=== PATIENT | male | born 1945 | race Caucasian/White ===

== ENCOUNTER 2017-05-09 22:03 | Inpatient (IN) | payer MEDICARE ==
--- NOTE | 2017-05-09 22:14 | ED Physician Chart ---
Chief Complaint/HPI - Patient Information Date Seen:: 05/09/17 Time Seen:: 22:09 Chief Complaint:: Increasing cough with fever for about 5 days. History of Present Illness:: Brought in by his friend Ms. Bella Pratt for the above reason. Pt reports worsening cough with yellow green sputum production over past 5 days with fever. Pt also experiences dyspnea intermittently. Denies chest pain or discomfort. H & P are limited because pt is not fully cooperative. Allergies:: Allergies Allergy/AdvReac Type Severity Reaction Status Date / Time No Known Allergies Allergy Unverified 04/30/16 10:37 Vitals:: see Nurse Note. Historian:: Patient Family MD/PCP:: unknown LMP:: N/A Review:: Nurse's Note Reviewed Review of Systems - Review of Systems General/Constitutional: Other (Pt does not cooperate for ROS.) Past Medical History - Past Medical History Past Medical History: Asthma/COPD (?) Family History: Other (Pt does not cooperate to provide info on FHx.) Social History: Smoker (1 ppd. Pt has been informed about health risks associated with chronic tobacco use. Pt has been advised to quit and has been encouraged to enroll in a smoking cessation program. Pt acknowledges understanding.), Single, Homeless Employment:: unemployed. Surgical History: None Psychiatricy History: None Medication: None Family Medical History - Family Member Mother History Unknown: Yes Son History Unknown: Yes Ethnicity: Non- Living Status: Still Living Hx Family Cancer: Yes Hx Family Coronary Artery Disease: Yes Hx Family Congestive Heart Failure: No Hx Family Hypertension: No Hx Family Stroke: Yes Hx Family Diabetes: No Hx Family Seizures: No Hx Family Dementia: No Hx Family AIDS: No Hx Family HIV: No Hx Family COPD: No Hx Family Hepatitis: No Hx Family Psychiatric Problems: No Hx Family Tuberculosis: No Father Ethnicity: Non- Living Status: Hx Family Coronary Artery Disease: Yes Physical Exam - Physical Examination General/Constitutional: Awake, Alert, Ambulatory (with assistance.) Other Gen/Cons comments:: WD cachectic elderly male with mild dyspnea. Pt speaks clearly but not fully cooperative. Pt ambulates with assistance. Head: Atraumatic Eyes: Lids, conjuctiva normal, PERRL, EOMI Skin: No lymphadenopathy Other Skin comments:: Skin has good color with mild decrease in turgor. ENMT: External ears, nose nl, TM canals nl, Nasal exam nl, Oropharynx nl Other ENMT comments:: Poor dentition with multiple missing teeth. Mucous membrane is dry. Neck: Nontender, Full ROM w/o pain, No JVD, No nuchal rigidity, No mass, No stridor Respiratory: Nl effort/Exclusion Other Respiratory comments:: Mild diffuse scattered rhonchi. Trace rales in R lower lung field. Cardio Vascular: RRR, No murmur, gallop, rubs GI: No tenderness/rebounding/guarding, No organomegaly, No hernia, Normal BS's, Nondistended, No mass/bruits, No McBurney tenderness : No CVA tenderness Extremities: No edema Neuro/Psych: Alert/oriented (oriented x 3), No focal deficits Labs/Radiology/EKG Results - Lab Results Results: Laboratory Tests 05/09/17 05/09/17 05/09/17 22:27 22:27 22:27 WBC 13.9 H D RBC 4.86 Hgb 13.6 Hct 40.7 MCV 83.8 MCH 28.0 MCHC Differential 33.4 RDW 15.3 Plt Count 190 MPV 8.9 Neutrophils % 81.6 H Lymphocytes % 8.7 L Monocytes % 5.8 Eosinophils % 1.1 Basophils % 2.8 H PT 10.4 INR 1.00 PTT (Actin FS) 24.5 L Sodium 133 L Potassium 3.9 Chloride 104 Carbon Dioxide 24.7 Anion Gap 8.2 BUN 20 Creatinine 0.9 Est GFR ( Amer) TNP Est GFR (Non-Af Amer) TNP BUN/Creatinine Ratio 22.2 Glucose 173 H Whole Bld Lactic Acid Calcium 9.5 Total Bilirubin 0.5 AST 26 ALT 19 Alkaline Phosphatase 147 H Creatine Kinase 147 Troponin I B-Natriuretic Peptide Total Protein 7.6 Albumin 3.5 L Globulin 4.1 Albumin/Globulin Ratio 0.9 L 05/09/17 05/09/17 22:27 22:27 WBC RBC Hgb Hct MCV MCH MCHC Differential RDW Plt Count MPV Neutrophils % Lymphocytes % Monocytes % Eosinophils % Basophils % PT INR PTT (Actin FS) Sodium Potassium Chloride Carbon Dioxide Anion Gap BUN Creatinine Est GFR ( Amer) Est GFR (Non-Af Amer) BUN/Creatinine Ratio Glucose Whole Bld Lactic Acid 1.14 Calcium Total Bilirubin AST ALT Alkaline Phosphatase Creatine Kinase Troponin I 0.04 B-Natriuretic Peptide 73.2 Total Protein Albumin Globulin Albumin/Globulin Ratio Urinalysis, sputum study are pending. - Radiology Results Results: PCXR: Based on my interpretation, increased markings at R lower lung field and L basilar region c/w pneumonia. Official report is pending. - EKG Interpretations EKG Time:: 22:35 Rate & Rhythm: NSR with VR 90 Comments:: RBBB. No acute ischemic changes. ED Septic Shock - . Is Septic Shock (SBP<90, OR Lactate>4 mmol\L) present?: No Reassessment (Disposition) - Reassessment Reassessment:: 2315 Pt has been repeatedly evaluated. Pt feels much better and now breathes comfortably with O2 saturation 97%. No wheeze. CXR is pending. 2340 CXR just became available. EKG, CXR, and lab findings have been reviewed with pt. Management plan has been discussed. Dr. Mancini is to be contacted. 2348 Case was discussed with Dr. Power with pertinent H & P, EKG, CXR, and available lab findings reviewed. He concurred with present management. Pt is to be admitted to [facility] under his care. He will follow on pending lab results. Reassessment Condition:: Improved - Diagnosis Diagnosis:: Febrile illness related to RLL and L basilar pneumonia. Stable. Dehydration, stable and improved. Mild hyperglycemia. Stable. - Patient Disposition Admitted to:: Med/Surg Admitting Medical Physician:: Arsalan Power Time:: 23:50 Condition at Disposition:: Stable, Improved
[2017-05-09] MEDS ORDERED: Albuterol/Ipratropium Neb 3 ML AERS HHN ONE ×2 (22:21→22:31)
[2017-05-09] MEDS ORDERED: Sodium Chloride 0.9% 500 ML IV ONE (22:24)
[2017-05-09] MEDS ORDERED: cefTRIAXone 1 GM in Sodium Chloride 0.9% 50 ML IV ONE (22:29)
[2017-05-09 22:39] LABS: % EOSINOPHILS 1.1 % (0.0-5.0)
[2017-05-09 22:43] LABS: % BASOPHILS 2.8 % (0.0-2.0); % LYMPHOCYTES 8.7 % (20.0-50.0); % MONOCYTES 5.8 % (2.0-10.0); % NEUTROPHILS 81.6 % (40.0-80.0); HEMATOCRIT 40.7 % (39.0-49.0); HEMOGLOBIN 13.6 gm/dL (12.6-17.4); MEAN CELL VOLUME 83.8 fl (80-99); MEAN CORPUSCULAR HGB CONC 33.4 pg (28.0-36.0); MEAN PLATELET VOLUME 8.9 fl; NEUTROPHILE ABSOLUTE 11.3 Th/cmm (1.8-8.0); PLATELET COUNT 190 Th/cmm (150-400); RED BLOOD COUNT 4.86 Mil/cmm (3.80-5.80); RED CELL DISTRIBUTION WIDTH 15.3 % (11.5-20.0)
[2017-05-09 22:45] LABS: WHITE BLOOD COUNT 13.9 Th/cmm (4.8-10.8)
[2017-05-09 22:52] LABS: ALB/GLOB RATIO 0.9 (1.0-1.8); ALKALINE PHOSPHATASE 147 U/L (34-104); ANION GAP 8.2 (7.0-16.0); BILIRUBIN,TOTAL 0.5 mg/dL (0.3-1.0); BUN - UREA NITROGEN 20 mg/dL (7-25); BUN/CREATININE RATIO 22.2; CALCIUM SERUM 9.5 mg/dL (8.6-10.3); CARBON DIOXIDE 24.7 mEq/L (21.0-31.0); CHLORIDE 104 mEq/L (98-107); CREATININE - SERUM 0.9 mg/dL (0.7-1.3); GLUCOSE 173 mg/dL (70-105); POTASSIUM SERUM 3.9 mEq/L (3.5-5.1); SGOT 26 U/L (13-39); SGPT/ALT 19 U/L (7-52); SODIUM SERUM 133 mEq/L (136-145)
[2017-05-09 22:55] LABS: PROTHROMBIN TIME (TEST) 10.4 SECONDS (9.5-11.5); TROP I 0.04 ng/mL (0.01-0.05)
[2017-05-09 23:16] LABS: BNP 73.2 pg/mL (5.0-100.0)
[2017-05-09] MEDS ORDERED: Azithromycin 500 MG in Sodium Chloride 0.9% 250 ML IV ONE (23:40)
[2017-05-10] MEDS: Sodium Chloride 0.9% 1,000 ML IV ONE ×2 (00:15→05:12)
--- NOTE | 2017-05-10 09:56 | History & Physical ---
ADMIT DATE: 05/10/2017 CHIEF COMPLAINT: Increasing cough and fever. HISTORY OF PRESENT ILLNESS: This is the case of a 71-year-old white male who came to the Emergency Room secondary to cough and fever. The patient came to Emergency Room for evaluation and treatment. The patient was having referred that he had been having shortness of breath and chest pain, reason why he was admitted for treatment. PAST MEDICAL HISTORY: The patient has past medical history of asthma and COPD. SOCIAL HISTORY: The patient is . The patient does smoke one pack daily for many years. FAMILY HISTORY: Noncontributory. PAST SURGICAL HISTORY: None. MEDICATIONS: None. REVIEW OF SYSTEMS: LUNGS: The patient referred cough and fever. HEART: The patient referred occasional chest pain. ABDOMEN: Unremarkable. EXTREMITIES: Unremarkable. PHYSICAL EXAMINATION: GENERAL: Does reveal a fairly nourished and developed white male, awake, alert, and ambulatory. HEENT: Head is normocephalic and atraumatic. Eyes: Pupils reactive to light. Nose: No evidence of nasal obstruction. Ears: No evidence of any discharge. Mouth: Fairly some teeth missing. LUNGS: Some crackles in right lower lung. ABDOMEN: Soft, nontender, bowel sound is present. EXTREMITIES: No edema. NEUROLOGICAL: The patient is awake, alert, in no acute distress. Neurological examination was not completed secondary to the patient not being cooperative. IMPRESSION: 1. Pneumonia. 2. Dehydration. PLAN: 1. The patient will be admitted in the medical surgical floor. 2. Rocephin IV. 3. IV normal saline. 4. Regular diet. 5. CBC, CMP at a.m. JOB# [id number]
--- NOTE | 2017-05-10 10:41 | Diagnostic Imaging Report ---
CHEST X-RAY: AP view INDICATION: Cough COMPARISON: Chest x-ray 04/01/[address] chest on 11/28/2015 FINDINGS: Chronic lung changes are seen with bibasal infiltrates. Cardiomegaly is noted with atherosclerosis. There may be a small left effusion. Degenerative changes of the spine are noted. IMPRESSION: Chronic lung changes and bibasal infiltrates. Underlying pneumonia in the lung bases cannot be excluded. Cardiomegaly and atherosclerotic vascular disease.
[2017-05-10] MEDS ORDERED: cefTRIAXone 1 GM in Sodium Chloride 0.9% 50 ML IV SCH (21:00)
--- NOTE | 2017-05-11 03:17 | Admit Criteria Form ---
Admit Criteria Forms - Admit Criteria Diagnosis: PNEUMONIA, COMMUNITY ACQUIRED Clinical Indications for Admission to Inpatient Care (Place ' X' for any and all applicable criteria): Admission to inpatient status for two midnights or more is indicated for ANY ONE of the following (1)(2)(3): [ ]I. Hypoxia [ ]II. Hemodynamic instability [ ]III. Altered mental status that is severe or persistent [ ]IV. Dehydration that is severe or persistent. [ ]V. Bacteremia [ ]. Moderate-risk or high-risk category patients (Pneumonia Severity Index ( PSI) class IV or V, or CURB-65 score of 3 or greater). [X]VII. Intermediate-risk category patients (e.g., PSI class III or CURB-65 score 2) who do not improve with outpatient and observation care treatment [ ]VIII. Outpatient treatment failure as indicated by 1 or more of the following(9): [ ]a) Failure to respond to antibiotic (eg, resistant organism) [ ]b) Clinically significant adverse effects from medication (eg, vomiting) [ ]c) Complications of pneumonia (eg, empyema, bacteremia) [ ]d) Significant worsening of comorbid cond necessitating inpatient care (eg, chronic heart failure) [ ]IX. Appropriate diagnostic testing and treatment unavailable in outpatient or recovery facility (eg, testing or infection control measures unavailable) [ ]X. Respiratory finding (eg. tachypnea) that do not respond to outpatient observation care treatment [ ]XI. Complicated pleural effusions (eg, emphysema, exudative, loculated) [ ]XII. Immunocompromised patients (e.g., AIDS, chronic steroid use) at moderate or high risk based on clinical evaluation. Extended stay beyond goal length of stay may be needed for (20) [ ]a) Unclear diagnosis [ ]b) Pleural disease [ ]c) Severe pneumonia or treatment failure [ ]d) Respiratory failure [ ]e) New onset hyponatremia (serum Na concentration less than 135 mEq/L(mmol/ L) [ ]f) Clinically significant comorbid illness (eg, heart failure, atrial fibrillation with rapid heart rate, alcohol withdrawal, renal insufficiency)(34)(35) [ ]g) Comorbid acute exacerbation of COPD(36) [ ]h) Concomitant diagnosis of malignancy [ ]i) Concomitant altered mental status [ ]j) Culture-identified Gram-negative or antibiotic-resistant organism (eg, Pseudomonas, methicillin-resistant Staphylococcus aureus MRSA)(30) [ ]k) Healthcare-associated pneumonia (36) The original [facility] [employer] content created by [facility] has been revised. The portions of the content which have been revised are identified through the use of italic text or in bold, and [facility] has neither reviewed nor approved the modified material. All other unmodified content is copyright [facility]. Please see references footnoted in the original [facility] edition 2017
[2017-05-11 05:47] LABS: % BASOPHILS 0.9 % (0.0-2.0); % EOSINOPHILS 7.1 % (0.0-5.0); % LYMPHOCYTES 12.6 % (20.0-50.0); % MONOCYTES 7.9 % (2.0-10.0); % NEUTROPHILS 71.5 % (40.0-80.0); HEMATOCRIT 41.7 % (39.0-49.0); HEMOGLOBIN 13.4 gm/dL (12.6-17.4); MEAN CELL VOLUME 85.7 fl (80-99); MEAN CORPUSCULAR HEMOGLOBIN 27.4 pg (27.0-31.0); MEAN PLATELET VOLUME 8.8 fl; NEUTROPHILE ABSOLUTE 7.6 Th/cmm (1.8-8.0); PLATELET COUNT 159 Th/cmm (150-400); RED BLOOD COUNT 4.87 Mil/cmm (3.80-5.80); RED CELL DISTRIBUTION WIDTH 15.2 % (11.5-20.0)
[2017-05-11 05:52] LABS: WHITE BLOOD COUNT 10.6 Th/cmm (4.8-10.8)
[2017-05-11 06:11] LABS: ALB/GLOB RATIO 0.8 (1.0-1.8); ALKALINE PHOSPHATASE 123 U/L (34-104); ANION GAP 8.1 (7.0-16.0); BILIRUBIN,TOTAL 0.6 mg/dL (0.3-1.0); BUN - UREA NITROGEN 15 mg/dL (7-25); BUN/CREATININE RATIO 21.4; CALCIUM SERUM 9.1 mg/dL (8.6-10.3); CARBON DIOXIDE 25.6 mEq/L (21.0-31.0); CHLORIDE 103 mEq/L (98-107); CREATININE - SERUM 0.7 mg/dL (0.7-1.3); GLUCOSE 123 mg/dL (70-105); POTASSIUM SERUM 3.7 mEq/L (3.5-5.1); SGOT 20 U/L (13-39); SGPT/ALT 15 U/L (7-52); SODIUM SERUM 133 mEq/L (136-145)
--- NOTE | 2017-05-11 08:34 | General Progress Note ---
Subjective - Review of Systems Service Date: 05/11/17 Subjective: I fell better Objective - Results Result Diagrams: 05/11/17 05:25 05/11/17 05:25 Recent Labs: Laboratory Last Values WBC 10.6 Th/cmm (4.8-10.8) D 05/11/17 05:25 RBC 4.87 Mil/cmm (3.80-5.80) 05/11/17 05:25 Hgb 13.4 gm/dL (12.6-17.4) 05/11/17 05:25 Hct 41.7 % (39.0-49.0) 05/11/17 05:25 MCV 85.7 fl (80-99) 05/11/17 05:25 MCH 27.4 pg (27.0-31.0) 05/11/17 05:25 MCHC Differential 32.0 pg (28.0-36.0) 05/11/17 05:25 RDW 15.2 % (11.5-20.0) 05/11/17 05:25 Plt Count 159 Th/cmm (150-400) 05/11/17 05:25 MPV 8.8 fl 05/11/17 05:25 Neutrophils % 71.5 % (40.0-80.0) 05/11/17 05:25 Lymphocytes % 12.6 % (20.0-50.0) L 05/11/17 05:25 Monocytes % 7.9 % (2.0-10.0) 05/11/17 05:25 Eosinophils % 7.1 % (0.0-5.0) H 05/11/17 05:25 Basophils % 0.9 % (0.0-2.0) 05/11/17 05:25 PT 10.4 SECONDS (9.5-11.5) 05/09/17 22:27 INR 1.00 (0.5-1.4) 05/09/17 22:27 PTT (Actin FS) 24.5 SECONDS (26.0-38.0) L 05/09/17 22:27 Sodium 133 mEq/L (136-145) L 05/11/17 05:25 Potassium 3.7 mEq/L (3.5-5.1) 05/11/17 05:25 Chloride 103 mEq/L (98-107) 05/11/17 05:25 Carbon Dioxide 25.6 mEq/L (21.0-31.0) 05/11/17 05:25 Anion Gap 8.1 (7.0-16.0) 05/11/17 05:25 BUN 15 mg/dL (7-25) 05/11/17 05:25 Creatinine 0.7 mg/dL (0.7-1.3) 05/11/17 05:25 Est GFR ( Amer) TNP 05/11/17 05:25 Est GFR (Non-Af Amer) TNP 05/11/17 05:25 BUN/Creatinine Ratio 21.4 05/11/17 05:25 Glucose 123 mg/dL (70-105) H 05/11/17 05:25 Whole Bld Lactic Acid 1.14 mmol/L (0.60-1.99) 05/09/17 22:27 Calcium 9.1 mg/dL (8.6-10.3) 05/11/17 05:25 Total Bilirubin 0.6 mg/dL (0.3-1.0) 05/11/17 05:25 AST 20 U/L (13-39) 05/11/17 05:25 ALT 15 U/L (7-52) 05/11/17 05:25 Alkaline Phosphatase 123 U/L (34-104) H 05/11/17 05:25 Creatine Kinase 147 U/L (30-223) 05/09/17 22:27 Troponin I 0.04 ng/mL (0.01-0.05) 05/09/17 22:27 B-Natriuretic Peptide 73.2 pg/mL (5.0-100.0) 05/09/17 22:27 Total Protein 6.9 gm/dL (6.0-8.3) 05/11/17 05:25 Albumin 3.0 gm/dL (4.2-5.5) L 05/11/17 05:25 Globulin 3.9 gm/dL 05/11/17 05:25 Albumin/Globulin Ratio 0.8 (1.0-1.8) L 05/11/17 05:25 - Physical Exam Vitals and I&O: Vital Signs Temp 99.0 F 05/11/17 04:00 Pulse 70 05/11/17 04:00 Resp 18 05/11/17 04:00 BP 140/76 05/11/17 04:00 Pulse Ox 96 05/11/17 04:00 Intake & Output 05/10/17 05/11/17 05/11/17 18:59 06:59 18:59 Intake Total 1200 400 Balance 1200 400 Weight (lbs) 73.391 kg 72.575 kg Intake: Oral 1200 400 Other: # Voids 2 2 # Bowel Movements 0 Active Medications: Current Medications Acetaminophen (Tylenol) 650 mg PO Q4H PRN PRN Reason: Pain/Fever Stop: 07/08/17 23:52 Ceftriaxone Sodium 1 gm/ (Sodium Chloride) 50 mls @ 100 mls/hr IV Q24H SWATHI Stop: 07/09/17 20:59 Last Admin: 05/10/17 21:18 Dose: 100 mls/hr General: Other (Sleeping but arousable) HEENT: Atraumatic Neck: Supple Cardiovascular: Regular rate Lungs: Other (Rude respitation) Abdomen: Bowel sounds, Soft Extremities: Other (No edema) Neurological: Normal gait Skin: Other (Warm and dry) Psych/Mental Status: Mental status NL Assessment/Plan - Problem List Patient Problems: All Active Problems Chronic obstructive pulmonary disease with acute exacerbation (Acute) J44.1 Pneumonia (Acute) J18.9 - Assessment Assessment: Patient is sleeping but arousable, in no acute distress. Dx: Pneumonia - Plan Plan: WBC improving, CXR is requested. On rocephin. Will continue to monitor. Nutritional Asmnt/Malnutr-PDOC - Dietary Evaluation Malnutrition Findings (Please click <Entered> for more info): Nutritional Asmnt/Malnutrition Start: 05/10/17 18: 41 Text: Status: Complete Freq: Document 05/10/17 18:41 GSUN (Rec: 05/10/17 18:54 [email or web address] [email or web address]) Nutritional Asmnt/Malnutrition Patient General Information Nutritional Screening High Risk Screening Diagnosis ER: pneumonia stable, dehydration, mild hyperglycemia Pertinent Medical Hx/Surgical Hx ER: ?asthma/COPD, smoker Subjective Information 71 year old male. Visited pt during dinner time. Pt was pleasant, provided one word responses. Pt was sitting on edge of bed eating dinner, 90% consumed at the time, no difficulties noted. Pt is edentulous, denied difficulties chewing/ swallowing. Pt report UBW 170lb, unsure of recent weight changes. Limited physical assessment, no severe wasting noted. Current Diet Order/ Nutrition Support Regular Pertinent Medications Reviewed. Pertinent Labs 05/09: glucose 173H Nutritional Hx/Data Height 1.78 m Height (Calculated Centimeters) 177.8 Current Weight (lbs) 73.391 kg Weight (Calculated Kilograms) 73.4 Weight (Calculated Grams) 54918.2 Usual body Weight (lbs) 170 [place] Body Weight 166 Weight Status Approriate GI Symptoms Cultural/Ethnic/Oriental Orthodox Belief Pt denied allergies and preferences. 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 Current %PO Good (75-100%) Estimated Nutritional Goals BEE in Kcals: Using Current wt Calories/Kcals/Kg CBW 161.8lb/73.5kg Kcals Calculated 2205-2573kcal (30-35kcal/kg) Protein: Using Current wt Protein Calculated 55966i (1-1.4g/kg) Fluid: ml Per MD (dx. dehydration) Nutritional Problem 1. Problem Problem Increased kcal and prot needs related to Etiology hypermetabolic state aeb Signs/Symptoms: pneumonia Intervention/Recommendation Comments 1. Continue with current diet order. 2. Monitor glucose levels, recommend [id number] if hyperglycemia persists. Expected Outcomes/Goals Expected Outcomes/Goals 1. PO intake to meet at least 75% of estimated nutritional needs.
--- NOTE | 2017-05-11 11:45 | Diagnostic Imaging Report ---
CHEST X-RAY: AP view INDICATION: Pneumonia COMPARISON: 05/09/2017 FINDINGS: Chronic lung changes are seen. Mild improvement in bibasal infiltrates are noted particularly of the right lung. There may be a trace left effusion. Heart size normal. IMPRESSION: Mild improvement in bibasal infiltrates, particularly of the right lung.
[2017-05-12 05:42] LABS: % BASOPHILS 0.2 % (0.0-2.0); % EOSINOPHILS 9.1 % (0.0-5.0); % LYMPHOCYTES 13.6 % (20.0-50.0); % MONOCYTES 8.9 % (2.0-10.0); % NEUTROPHILS 68.2 % (40.0-80.0); HEMATOCRIT 42.3 % (39.0-49.0); HEMOGLOBIN 13.9 gm/dL (12.6-17.4); MEAN CELL VOLUME 85.1 fl (80-99); MEAN CORPUSCULAR HGB CONC 32.8 pg (28.0-36.0); NEUTROPHILE ABSOLUTE 6.3 Th/cmm (1.8-8.0); PLATELET COUNT 168 Th/cmm (150-400); RED BLOOD COUNT 4.97 Mil/cmm (3.80-5.80); RED CELL DISTRIBUTION WIDTH 14.9 % (11.5-20.0); WHITE BLOOD COUNT 9.2 Th/cmm (4.8-10.8)
[2017-05-12 05:51] LABS: ALB/GLOB RATIO 0.8 (1.0-1.8); ALKALINE PHOSPHATASE 126 U/L (34-104); ANION GAP 7.6 (7.0-16.0); BILIRUBIN,TOTAL 0.5 mg/dL (0.3-1.0); BUN - UREA NITROGEN 17 mg/dL (7-25); BUN/CREATININE RATIO 24.3; CALCIUM SERUM 9.4 mg/dL (8.6-10.3); CARBON DIOXIDE 27.3 mEq/L (21.0-31.0); CHLORIDE 104 mEq/L (98-107); CREATININE - SERUM 0.7 mg/dL (0.7-1.3); GLUCOSE 134 mg/dL (70-105); POTASSIUM SERUM 3.9 mEq/L (3.5-5.1); SGOT 21 U/L (13-39); SGPT/ALT 17 U/L (7-52); SODIUM SERUM 135 mEq/L (136-145)
--- NOTE | 2017-05-12 08:48 | General Progress Note ---
Subjective - Review of Systems Service Date: 05/12/17 Subjective: I fell better Objective - Results Result Diagrams: 05/12/17 05:10 05/12/17 05:10 Recent Labs: Laboratory Last Values WBC 9.2 Th/cmm (4.8-10.8) 05/12/17 05:10 RBC 4.97 Mil/cmm (3.80-5.80) 05/12/17 05:10 Hgb 13.9 gm/dL (12.6-17.4) 05/12/17 05:10 Hct 42.3 % (39.0-49.0) 05/12/17 05:10 MCV 85.1 fl (80-99) 05/12/17 05:10 MCH 28.0 pg (27.0-31.0) 05/12/17 05:10 MCHC Differential 32.8 pg (28.0-36.0) 05/12/17 05:10 RDW 14.9 % (11.5-20.0) 05/12/17 05:10 Plt Count 168 Th/cmm (150-400) 05/12/17 05:10 MPV 9.0 fl 05/12/17 05:10 Neutrophils % 68.2 % (40.0-80.0) 05/12/17 05:10 Lymphocytes % 13.6 % (20.0-50.0) L 05/12/17 05:10 Monocytes % 8.9 % (2.0-10.0) 05/12/17 05:10 Eosinophils % 9.1 % (0.0-5.0) H 05/12/17 05:10 Basophils % 0.2 % (0.0-2.0) 05/12/17 05:10 PT 10.4 SECONDS (9.5-11.5) 05/09/17 22:27 INR 1.00 (0.5-1.4) 05/09/17 22:27 PTT (Actin FS) 24.5 SECONDS (26.0-38.0) L 05/09/17 22:27 Sodium 135 mEq/L (136-145) L 05/12/17 05:10 Potassium 3.9 mEq/L (3.5-5.1) 05/12/17 05:10 Chloride 104 mEq/L (98-107) 05/12/17 05:10 Carbon Dioxide 27.3 mEq/L (21.0-31.0) 05/12/17 05:10 Anion Gap 7.6 (7.0-16.0) 05/12/17 05:10 BUN 17 mg/dL (7-25) 05/12/17 05:10 Creatinine 0.7 mg/dL (0.7-1.3) 05/12/17 05:10 Est GFR ( Amer) TNP 05/12/17 05:10 Est GFR (Non-Af Amer) TNP 05/12/17 05:10 BUN/Creatinine Ratio 24.3 05/12/17 05:10 Glucose 134 mg/dL (70-105) H 05/12/17 05:10 Whole Bld Lactic Acid 1.14 mmol/L (0.60-1.99) 05/09/17 22:27 Calcium 9.4 mg/dL (8.6-10.3) 05/12/17 05:10 Total Bilirubin 0.5 mg/dL (0.3-1.0) 05/12/17 05:10 AST 21 U/L (13-39) 05/12/17 05:10 ALT 17 U/L (7-52) 05/12/17 05:10 Alkaline Phosphatase 126 U/L (34-104) H 05/12/17 05:10 Creatine Kinase 147 U/L (30-223) 05/09/17 22:27 Troponin I 0.04 ng/mL (0.01-0.05) 05/09/17 22:27 B-Natriuretic Peptide 73.2 pg/mL (5.0-100.0) 05/09/17 22:27 Total Protein 7.1 gm/dL (6.0-8.3) 05/12/17 05:10 Albumin 3.1 gm/dL (4.2-5.5) L 05/12/17 05:10 Globulin 4.0 gm/dL 05/12/17 05:10 Albumin/Globulin Ratio 0.8 (1.0-1.8) L 05/12/17 05:10 - Physical Exam Vitals and I&O: Vital Signs Temp 97.8 F 05/12/17 07:53 Pulse 59 05/12/17 07:53 Resp 20 05/12/17 07:53 BP 152/77 05/12/17 07:53 Pulse Ox 94 05/12/17 07:53 Intake & Output 05/11/17 05/12/17 05/12/17 18:59 06:59 18:59 Intake Total 500 Balance 500 Weight (lbs) 71.668 kg 72.121 kg Intake: Oral 500 Other: # Voids 2 # Bowel Movements 1 Active Medications: Current Medications Acetaminophen (Tylenol) 650 mg PO Q4H PRN PRN Reason: Pain/Fever Stop: 07/08/17 23:52 Ceftriaxone Sodium 1 gm/ (Sodium Chloride) 50 mls @ 100 mls/hr IV Q24H SWATHI Stop: 07/09/17 20:59 Last Admin: 05/10/17 21:18 Dose: 100 mls/hr General: Alert, Oriented x3, Cooperative, No acute distress HEENT: Atraumatic Neck: Supple Cardiovascular: Regular rate Lungs: Clear to auscultation Abdomen: Bowel sounds, Soft Extremities: Other (No edema) Neurological: Normal gait Skin: Other (Warm and dry) Psych/Mental Status: Mental status NL Assessment/Plan - Problem List Patient Problems: All Active Problems Chronic obstructive pulmonary disease with acute exacerbation (Acute) J44.1 Pneumonia (Acute) J18.9 - Assessment Assessment: Patient is sleeping but arousable, in no acute distress. Dx: Pneumonia. - Plan Plan: WBC improving, CXR shows improvement. Patient is discharge. Nutritional Asmnt/Malnutr-PDOC - Dietary Evaluation Malnutrition Findings (Please click <Entered> for more info): Nutritional Asmnt/Malnutrition Start: 05/10/17 18: 41 Text: Status: Complete Freq: Document 05/10/17 18:41 GSUN (Rec: 05/10/17 18:54 [email or web address] [email or web address]) Nutritional Asmnt/Malnutrition Patient General Information Nutritional Screening High Risk Screening Diagnosis ER: pneumonia stable, dehydration, mild hyperglycemia Pertinent Medical Hx/Surgical Hx ER: ?asthma/COPD, smoker Subjective Information 71 year old male. Visited pt during dinner time. Pt was pleasant, provided one word responses. Pt was sitting on edge of bed eating dinner, 90% consumed at the time, no difficulties noted. Pt is edentulous, denied difficulties chewing/ swallowing. Pt report UBW 170lb, unsure of recent weight changes. Limited physical assessment, no severe wasting noted. Current Diet Order/ Nutrition Support Regular Pertinent Medications Reviewed. Pertinent Labs 05/09: glucose 173H Nutritional Hx/Data Height 1.78 m Height (Calculated Centimeters) 177.8 Current Weight (lbs) 73.391 kg Weight (Calculated Kilograms) 73.4 Weight (Calculated Grams) 56754.2 Usual body Weight (lbs) 170 [place] Body Weight 166 Weight Status Approriate GI Symptoms Cultural/Ethnic/Scientologist Belief Pt denied allergies and preferences. 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 Current %PO Good (75-100%) Estimated Nutritional Goals BEE in Kcals: Using Current wt Calories/Kcals/Kg CBW 161.8lb/73.5kg Kcals Calculated 2205-2573kcal (30-35kcal/kg) Protein: Using Current wt Protein Calculated 45245b (1-1.4g/kg) Fluid: ml Per MD (dx. dehydration) Nutritional Problem 1. Problem Problem Increased kcal and prot needs related to Etiology hypermetabolic state aeb Signs/Symptoms: pneumonia Intervention/Recommendation Comments 1. Continue with current diet order. 2. Monitor glucose levels, recommend [id number] if hyperglycemia persists. Expected Outcomes/Goals Expected Outcomes/Goals 1. PO intake to meet at least 75% of estimated nutritional needs.
== END 2017-05-12 12:50 | disposition home or self-care (01) | DRG 871 ==
LOC: ER 22:03 → MSI 05-10 04:06
PROVIDERS: ADMIT General Practice; ATTEND General Practice
DX: A41.9 Sepsis, unspecified organism (principal); J18.9 Pneumonia, unspecified organism; J44.0 Chronic obstructive pulmonary disease with (acute) lower respiratory infection; J44.1 Chronic obstructive pulmonary disease with (acute) exacerbation; E86.0 Dehydration; F17.210 Nicotine dependence, cigarettes, uncomplicated; R73.9 Hyperglycemia, unspecified; Z59.0 Homelessness; Z71.6 Tobacco abuse counseling; Z82.3 Family history of stroke; Z82.49 Family history of ischemic heart disease and other diseases of the circulatory system; Z80.9 Family history of malignant neoplasm, unspecified; Z68.22 Body mass index [BMI] 22.0-22.9, adult
CPT/HCPCS: 36415-UA; 71010-TC; 80053-TC; 82550-TC; 83605; 83880-TC; 84484-TC; 85025-TC; 85610-TC; 87070; 93005; J0456; J0696; J7030; J7040; Z7610

== ENCOUNTER 2017-07-31 18:06 | Inpatient (IN) | payer MEDICARE ==
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
[2017-07-31] MEDS ORDERED: Sodium Chloride 0.9% 1,000 ML IV ONE (18:46)
[2017-07-31 19:09] LABS: % BASOPHILS 0.7 % (0.0-2.0); % LYMPHOCYTES 15.7 % (20.0-50.0); % MONOCYTES 7.8 % (2.0-10.0); % NEUTROPHILS 67.8 % (40.0-80.0); HEMATOCRIT 41.3 % (41.0-60); HEMOGLOBIN 13.6 gm/dL (12-16); MEAN CELL VOLUME 87.7 fl (80-99); MEAN CORPUSCULAR HEMOGLOBIN 28.9 pg (27.0-31.0); MEAN PLATELET VOLUME 8.6 fl; NEUTROPHILE ABSOLUTE 4.8 Th/cmm (1.8-8.0); RED BLOOD COUNT 4.71 Mil/cmm (3.80-5.80); RED CELL DISTRIBUTION WIDTH 15.3 % (11.5-20.0)
[2017-07-31 19:14] LABS: PLATELET COUNT 132 Th/cmm (150-400); WHITE BLOOD COUNT 7.1 Th/cmm (4.8-10.8)
[2017-07-31 19:23] LABS: ALKALINE PHOSPHATASE 148 U/L (34-104); ANION GAP 7.9 (7.0-16.0); BILIRUBIN,TOTAL 0.5 mg/dL (0.3-1.0); BUN - UREA NITROGEN 21 mg/dL (7-25); CALCIUM SERUM 9.1 mg/dL (8.6-10.3); CARBON DIOXIDE 26.1 mEq/L (21.0-31.0); CHLORIDE 106 mEq/L (98-107); CREATININE - SERUM 0.7 mg/dL (0.7-1.3); GLUCOSE 136 mg/dL (70-105); SGOT 53 U/L (13-39); SGPT/ALT 44 U/L (7-52); SODIUM SERUM 136 mEq/L (136-145)
[2017-07-31 20:33] LABS: AMPHETAMINE URINE POSITIVE (NEGATIVE); BARBITURATES URINE NEGATIVE (NEGATIVE); METHADONE URINE NEGATIVE (NEGATIVE)
[2017-08-01] MEDS ORDERED: Haloperidol Lactate 5 mg/mL 1mL Vial IM PRN (01:57)
[2017-08-01] MEDS ORDERED: Haloperidol Lactate 5 mg/mL 1mL Vial ONE (01:59)
[2017-08-01] MEDS ORDERED: Haloperidol Lactate 5 mg/mL 1mL Vial IM ONE ×2 (02:06→08:10)
[2017-08-01] MEDS ORDERED: Sodium Chloride 0.9% 1,000 ML IV SCH (03:28)
[2017-08-01 03:57] VITALS: BP 147/93
[2017-08-01] MEDS ORDERED: Pneumococcal Vaccine 0.5 mL Vial IM ONE (04:52)
--- NOTE | 2017-08-01 09:06 | Diagnostic Imaging Report ---
CT scan cervical spine HISTORY: Pain, trauma Total DLP equals 700 CTDI equals 40.0 Axial sections are obtained to the cervical spine. Additional sagittal and coronal reformatted images are provided. There are relatively severe diffuse degenerative changes with hypertrophic spur formation noted about the endplates of all vertebrae. Narrowing of the C6-7 interspace. No acute abnormalities. No fractures. The prevertebral soft tissues appear normal. Atherosclerotic calcification seen in the carotid artery regions. IMPRESSION: 1. No acute abnormalities 2. Relatively severe diffuse degenerative changes 3. Atherosclerotic vascular changes
--- NOTE | 2017-08-01 09:07 | Diagnostic Imaging Report ---
CT scan of the brain without intravenous contrast HISTORY: Headache, trauma Total DLP equals 623 CTDI equals 34.1 Axial sections were obtained from the base of the skull to the vertex. There is enlargement of the ventricular system along with enlargement of cerebral sulci and subarachnoid cisterns reflecting atrophy. There are extensive bilateral Avelino hypodense white matter changes without mass effect. The findings may be associated with chronic small vessel ischemic disease. Several subcentimeter hypodense foci are scattered within the basal ganglia regions bilaterally. Changes may be associated with old lacunar infarcts. No acute intracerebral hemorrhage. Again, no mass effect or shift of midline structures. No extra-axial masses or abnormal fluid collections. Camilo thickening noted about the left maxillary sinus. Deviation of the nasal septum to the left. IMPRESSION: 1. No acute abnormalities 2. Cerebral atrophy 3. Supratentorial white matter changes that may reflect chronic small vessel ischemic disease 4. Small bilateral hypodensities that may be related to old lacunar infarcts 5. Mucosal thickening about the left maxillary sinus
[2017-08-01] MEDS: Haloperidol Lactate 5 mg/mL 1mL Vial IM PRN (13:12)
[2017-08-01] MEDS: Betamethasone/Clotrimazole Cream 15 gm Tube TP SCH (16:51)
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
[2017-08-02] MEDS: Haloperidol Lactate 5 mg/mL 1mL Vial IM PRN (00:03)
[2017-08-02] MEDS: Betamethasone/Clotrimazole Cream 15 gm Tube TP SCH ×2 (09:16→18:55)
[2017-08-02] MEDS ORDERED: Sodium Chloride 0.9% 1,000 ML IV SCH (12:30)
--- NOTE | 2017-08-02 13:07 | Diagnostic Imaging Report ---
Ultrasound urinary bladder History: Bladder distention Comparison: None Findings: Distended urinary bladder is noted. Small amount of debris is noted in the urinary bladder. The prostate gland appears prominent with mass effect upon the base of the urinary bladder. The prostate gland demonstrates irregular borders with cystic lesion measuring 1.1 cm. IMPRESSION: Prominent appearing prostate gland with mass effect upon the base of the urinary bladder. Note that an intrinsic urinary bladder mass in this area cannot be completely excluded. Clinical correlation and follow-up is recommended Small amount of debris noted in the urinary bladder.
[2017-08-02 13:18] LABS: HEMATOCRIT 48.5 % (41.0-60); HEMOGLOBIN 15.9 gm/dL (12-16); MEAN CELL VOLUME 86.2 fl (80-99); MEAN CORPUSCULAR HEMOGLOBIN 28.3 pg (27.0-31.0); MEAN CORPUSCULAR HGB CONC 32.9 pg (28.0-36.0); PLATELET COUNT 158 Th/cmm (150-400); RED BLOOD COUNT 5.63 Mil/cmm (3.80-5.80); RED CELL DISTRIBUTION WIDTH 15.5 % (11.5-20.0)
[2017-08-02 13:35] LABS: INR 1.09 (0.5-1.4); PROTHROMBIN TIME (TEST) 11.3 SECONDS (9.5-11.5)
[2017-08-02 13:51] LABS: ALKALINE PHOSPHATASE 174 U/L (34-104); ANION GAP 13.1 (7.0-16.0); BILIRUBIN,TOTAL 1.2 mg/dL (0.3-1.0); BUN - UREA NITROGEN 35 mg/dL (7-25); BUN/CREATININE RATIO 14.6; CALCIUM SERUM 9.6 mg/dL (8.6-10.3); CARBON DIOXIDE 21.3 mEq/L (21.0-31.0); CHLORIDE 108 mEq/L (98-107); CREATININE - SERUM 2.4 mg/dL (0.7-1.3); GLUCOSE 172 mg/dL (70-105); POTASSIUM SERUM 4.4 mEq/L (3.5-5.1); SGOT 48 U/L (13-39); SGPT/ALT 35 U/L (7-52); SODIUM SERUM 138 mEq/L (136-145)
[2017-08-02 14:00] LABS: WHITE BLOOD COUNT 15.6 Th/cmm (4.8-10.8)
[2017-08-02 14:25] LABS: EOSINOPHIL 2 % (0-5); NEUTROPHILS 84 % (40-80); PLATELET ESTIMATE ADEQUATE (NORMAL); TOTAL CELLS COUNTED 100
--- NOTE | 2017-08-02 15:49 | Progress Notes ---
DATE: 08/02/2017 SUBJECTIVE: Chart reviewed and the patient interviewed. Also discussed the patient's condition with the staff and reviewed records and labs. The patient is still confused and is still having episodes of agitation, but seems to be less than before. The patient also still needs lots of redirections. He is still on ____, but not on restraints. He also still seems to be today slightly sedated, but no major behavioral problems. ASSESSMENT: The patient still needs close monitoring. TREATMENT PLAN: We will continue monitoring his behavior and his condition closely and continue working on behavioral modification. JOB# [id number]
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
== END 2017-08-03 02:56 | disposition short-term general hospital (02) | DRG 92 ==
LOC: ER 18:06 → TELE 08-01 02:20 → MSI 08-01 10:21
PROVIDERS: ADMIT Family Medicine; ATTEND Family Medicine
DX: G92 Toxic encephalopathy (principal); N17.9 Acute kidney failure, unspecified; E88.09 Other disorders of plasma-protein metabolism, not elsewhere classified; G31.2 Degeneration of nervous system due to alcohol; N32.89 Other specified disorders of bladder; I10 Essential (primary) hypertension; S00.83XA Contusion of other part of head, initial encounter; D72.829 Elevated white blood cell count, unspecified; T43.625A Adverse effect of amphetamines, initial encounter; F20.9 Schizophrenia, unspecified; F15.10 Other stimulant abuse, uncomplicated; N40.0 Benign prostatic hyperplasia without lower urinary tract symptoms; F29 Unspecified psychosis not due to a substance or known physiological condition; F17.210 Nicotine dependence, cigarettes, uncomplicated; L53.9 Erythematous condition, unspecified; R33.9 Retention of urine, unspecified; F10.20 Alcohol dependence, uncomplicated; W01.0XXA Fall on same level from slipping, tripping and stumbling without subsequent striking against object, initial encounter; Y93.I9 Activity, other involving external motion; Y92.89 Other specified places as the place of occurrence of the external cause; Y99.8 Other external cause status; Z82.3 Family history of stroke; Z82.49 Family history of ischemic heart disease and other diseases of the circulatory system
CPT/HCPCS: 36415-UA; 70450-TC; 72125-TC; 76857-TC; 80053-TC; 80307; 80320-TC; 84484-TC; 85007-TC; 85025-TC; 85027-TC; 85610-TC; 93005; 96374; J1200; J1630; J2060; J7030; Z7610

== ENCOUNTER 2017-08-13 13:13 | Inpatient (IN) | payer MEDICARE ==
[2017-08-13 13:46] LABS: % BASOPHILS 0.8 % (0.0-2.0); % LYMPHOCYTES 18.5 % (20.0-50.0); % MONOCYTES 10.6 % (2.0-10.0); % NEUTROPHILS 58.1 % (40.0-80.0); MEAN CELL VOLUME 86.8 fl (80-99); MEAN CORPUSCULAR HEMOGLOBIN 29.3 pg (27.0-31.0); MEAN CORPUSCULAR HGB CONC 33.8 pg (28.0-36.0); NEUTROPHILE ABSOLUTE 3.4 Th/cmm (1.8-8.0); RED BLOOD COUNT 3.38 Mil/cmm (3.80-5.80); RED CELL DISTRIBUTION WIDTH 14.9 % (11.5-20.0)
[2017-08-13 13:50] LABS: WHITE BLOOD COUNT 5.8 Th/cmm (4.8-10.8)
[2017-08-13 13:51] LABS: HEMATOCRIT 29.3 % (41.0-60); HEMOGLOBIN 9.9 gm/dL (12-16); PLATELET COUNT 210 Th/cmm (150-400)
--- NOTE | 2017-08-13 13:53 | ED Physician Chart ---
ED Chief Complaint/HPI - Patient Information Date Seen:: 08/13/17 Time Seen:: 13:30 Chief Complaint:: PSYCHOSIS History of Present Illness:: THIS IS A 72 YR OLD MALE PATIENT [facility] FOR [facility] AND TREATMENT FOR HIS PSYCHOTIC BEHAVIOR. Allergies:: Allergies Allergy/AdvReac Type Severity Reaction Status Date / Time No Known Allergies Allergy Unverified 04/30/16 10:37 Vitals:: Vital Signs - 8 hr 08/13/17 13:23 Temp 98.2 F HR 93 RR 16 BP 118/65 O2 Sat % 98 Historian:: Medical Records Review:: Nurse's Note Reviewed, Old Chart Reviewed ED Review of Systems - Review of Systems General/Constitutional: No fever, No chills, No weight loss, No weakness, No diaphoresis, No edema, No loss of appetite, Other (THIS PATIENT'S REVIEW OF SYSTEMS IS NOT ACCURATE.) Skin: No skin lesions, No rash, No bruising Head: No headache, No light-headedness Eyes: No loss of vision, No pain, No diplopia ENT: No earache, No nasal drainage, No sore throat, No tinnitus Neck: No neck pain, No swelling, No thyromegaly, No stiffness, No mass noted Cardio Vascular: No chest pain, No palpitations, No PND, No orthopnea, No edema Pulmonary: No SOB, No cough, No sputum, No wheezing GI: No nausea, No vomiting, No diarrhea, No pain, No melena, No hematochezia, No constipation, No hematemesis G/U: No dysuria, No frequency, No hematuria Musculoskeletal: No bone or joint pain, No back pain, No muscle pain Endocrine: No polyuria, No polydipsia Psychiatric: No prior psych history, No depression, No anxiety, No suicidal ideation Hematopoietic: No bruising, No lymphadenopathy Allergic/Immuno: No urticaria, No angioedema Neurological: No syncope, No focal symptoms, No weakness, No paresthesia, No headache, No seizure, No dizziness, No confusion, No vertigo ED Past Medical History - Past Medical History Obtainable: Yes Past Medical History: Dementia, Other (METH ABUSE) Family History: None Social History: Smoker, Alcohol, Illicit Drug Use, Single, Care Facility Surgical History: None Psychiatricy History: Schizophrenia, Bipolar, Dementia Medication: Reviewed Family Medical History - Family Member Mother History Unknown: Yes Son History Unknown: Yes Ethnicity: Unknown Living Status: Unknown Hx Family Cancer: Yes Hx Family Coronary Artery Disease: Yes Hx Family Congestive Heart Failure: No Hx Family Hypertension: No Hx Family Stroke: Yes Hx Family Diabetes: No Hx Family Seizures: No Hx Family Dementia: No Hx Family AIDS: No Hx Family HIV: No Hx Family COPD: No Hx Family Hepatitis: No Hx Family Psychiatric Problems: No Hx Family Tuberculosis: No Father History Unknown: Yes Ethnicity: Non- Living Status: Hx Family Cancer: No Hx Family Coronary Artery Disease: No Hx Family Congestive Heart Failure: Yes Hx Family Hypertension: No Hx Family Stroke: No Hx Family Diabetes: No Hx Family Seizures: No Hx Family Dementia: No Hx Family AIDS: No Hx Family HIV: No Hx Family COPD: No Hx Family Hepatitis: No Hx Family Psychiatric Problems: No Hx Family Tuberculosis: No ED Physical Exam - Physical Examination General/Constitutional: Awake, Well-developed, well-nourished, Alert, No distress, GCS 15, Non-toxic appearing, Ambulatory Other Gen/Cons comments:: LETHARGY Head: Atraumatic Eyes: Lids, conjuctiva normal, PERRL, EOMI Skin: Nl inspection, No rash, No skin lesions, No ecchymosis, Well hydrated, No lymphadenopathy ENMT: External ears, nose nl, Nasal exam nl, Lips, teeth, gums nl Neck: Nontender, Full ROM w/o pain, No JVD, No nuchal rigidity, No bruit, No mass, No stridor Respiratory: Nl effort/Exclusion, Clear to Auscultation, No Wheeze/Rhonchi/Rales Cardio Vascular: RRR, No murmur, gallop, rubs, NL S1 S2 GI: No tenderness/rebounding/guarding, No organomegaly, No hernia, Normal BS's, Nondistended, No mass/bruits, No McBurney tenderness : No CVA tenderness Extremities: No tenderness or effusion, Full ROM, normal strength in all extremities, No edema, Normal digits & nails Neuro/Psych: DTR's symmetric, Normal sensory exam, Normal motor strength, Normal gait, No focal deficits Misc: Normal back, No paraspinal tenderness Other Misc comments:: THIS PATIENT IS UNABLE TO RESPOND WELL VERBALLY. ED Labs/Radiology/EKG Results - Lab Results Results: Abnormal Lab Results 08/13/17 08/13/17 08/13/17 13:35 13:35 13:35 WBC 5.8 D RBC 3.38 L Hgb 9.9 L D Hct 29.3 L D MCV 86.8 MCH 29.3 MCHC Differential 33.8 RDW 14.9 Plt Count 210 D MPV 8.0 Neutrophils % 58.1 Lymphocytes % 18.5 L Monocytes % 10.6 H Eosinophils % 12.0 H Basophils % 0.8 PT 10.1 INR 0.97 PTT (Actin FS) 26.3 Sodium 135 L Potassium 4.2 Chloride 106 Carbon Dioxide 24.0 Anion Gap 9.2 BUN 26 H Creatinine 1.0 Est GFR ( Amer) TNP Est GFR (Non-Af Amer) TNP BUN/Creatinine Ratio 26.0 Glucose 236 H Calcium 8.5 L Total Bilirubin 0.2 L AST 41 H ALT 37 Alkaline Phosphatase 160 H Troponin I Total Protein 6.1 Albumin 2.7 L Globulin 3.4 Albumin/Globulin Ratio 0.8 L Triglycerides Cholesterol LDL Cholesterol Direct HDL Cholesterol 08/13/17 08/13/17 13:35 13:35 WBC RBC Hgb Hct MCV MCH MCHC Differential RDW Plt Count MPV Neutrophils % Lymphocytes % Monocytes % Eosinophils % Basophils % PT INR PTT (Actin FS) Sodium Potassium Chloride Carbon Dioxide Anion Gap BUN Creatinine Est GFR ( Amer) Est GFR (Non-Af Amer) BUN/Creatinine Ratio Glucose Calcium Total Bilirubin AST ALT Alkaline Phosphatase Troponin I 0.02 Total Protein Albumin Globulin Albumin/Globulin Ratio Triglycerides 95 Cholesterol 95 LDL Cholesterol Direct 58 L HDL Cholesterol 30 - Radiology Results Results: CHEST X-RAY = PATCHES OF FIBROTIC LUNG DISEASE - EKG Interpretations EKG Time:: 13:33 Rate & Rhythm: RATE=64, NSR Sherrill: RIGHT AXIS ED Assessment - Assessment General Assessment: PSYCHOSIS ED Septic Shock - . Is Septic Shock (SBP<90, OR Lactate>4 mmol\L) present?: No - <6hrs of presentation: Vital Signs: Vital Signs - 8 hr 08/13/17 13:23 Temp 98.2 F HR 93 RR 16 BP 118/65 O2 Sat % 98 ED Reassessment (Disposition) - Reassessment Reassessment Condition:: Unchanged - Diagnosis Diagnosis:: PSYCHOSIS ANEMIA - Patient Disposition Discharge/Transfer:: Acute Care w/in this hosp Admitting Medical Physician:: Lorne Sequeira Admitting Psych Physician:: Blake Rey Condition at Disposition:: Unchanged ED Discharge Plan - Patient Disposition Admit/Discharge/Transfer: Acute Care w/in this hosp Condition at Disposition: Unchanged Instructions: Psychosis
[2017-08-13 14:04] LABS: INR 0.97 (0.5-1.4); PROTHROMBIN TIME (TEST) 10.1 SECONDS (9.5-11.5)
[2017-08-13 14:07] LABS: ALB/GLOB RATIO 0.8 (1.0-1.8); ALKALINE PHOSPHATASE 160 U/L (34-104); ANION GAP 9.2 (7.0-16.0); BILIRUBIN,TOTAL 0.2 mg/dL (0.3-1.0); BUN - UREA NITROGEN 26 mg/dL (7-25); CALCIUM SERUM 8.5 mg/dL (8.6-10.3); CHLORIDE 106 mEq/L (98-107); GLUCOSE 236 mg/dL (70-105); POTASSIUM SERUM 4.2 mEq/L (3.5-5.1); SGOT 41 U/L (13-39); SGPT/ALT 37 U/L (7-52); SODIUM SERUM 135 mEq/L (136-145)
[2017-08-13 14:08] LABS: CHOLESTEROL 95 mg/dL (<200); TRIGLYCERIDES 95 mg/dL (<150)
--- NOTE | 2017-08-13 15:35 | Diagnostic Imaging Report ---
Portable chest x-ray HISTORY: Shortness of breath There is a poor inspiration. The heart size appears generous. Atherosclerotic calcification seen in the aorta. Accentuation of the lower interstitial lung markings probably chronic. No hilar or mediastinal abnormalities. IMPRESSION: 1. Accentuation of the lower interstitial lung markings that appear chronic 2. Cardiomegaly with atherosclerotic vascular changes
[2017-08-13 16:07] VITALS: BP 135/64
[2017-08-13] MEDS ORDERED: Magnesium Hydroxide (MOM) 30 mL UDC PO PRN (16:10)
[2017-08-13] MEDS ORDERED: Maalox 30 mL Cup PO PRN (16:10)
[2017-08-14] MEDS: Multivitamin Tab PO SCH (09:07)
--- NOTE | 2017-08-14 19:34 | History & Physical ---
ADMIT DATE: 08/14/2017 REASON FOR ADMISSION: Psychiatric disorder. HISTORY OF PRESENT ILLNESS: This is a 72-year-old with underlying history of obstructive uropathy secondary to BPH, history of methamphetamine abuse, psychiatric disorders, who was admitted to [facility] by Dr. Rey for evaluation with exacerbation of underlying psychiatric disorder. Dr. Rey requested medical H and P on this patient. The patient is doing fine. No reported concern. PAST MEDICAL HISTORY: Methamphetamine abuse, obstructive uropathy. PAST SURGICAL HISTORY: None reported. SOCIAL HISTORY: No reported prior history of methamphetamine abuse. No reported alcohol, tobacco use. CURRENT MEDICATIONS: Tylenol, Maalox, Proscar, folate, Motrin, Ativan, milk of magnesia, Theragran, Seroquel, Flomax, Hytrin, and Ambien. REVIEW OF SYSTEMS: No reported fever, no vomiting, no diarrhea, no chest pain, no shortness of breath, no headache, or other complaints. PHYSICAL EXAMINATION: VITAL SIGNS: Temperature 98.4, pulse 61, respirations 18, blood pressure 119/62, oxygen 96% on room air. Pain 0/10. GENERAL APPEARANCE: The patient does not seem in acute distress. HEENT: Unremarkable. HEART: S1, S2 normal. LUNGS: Clear to auscultation bilaterally. ABDOMEN: Soft, nontender, no guarding. NEUROLOGIC: Alert, awake, pleasant. No focal deficits. EXTREMITIES: No edema. AVAILABLE LABORATORY DATA: WBC 5.0, hemoglobin 9.9, hematocrit 29.3, platelet count is 210, sodium 130, potassium is 4.0, BUN 21. Calcium 8.5, hemoglobin A1c 7.3, sugar is 236. Troponin 0.02. ASSESSMENT: 1. Diabetes type 2. 2. Anemia unspecified. 3. Obstructive uropathy. 4. Benign prostatic hypertrophy. 5. Psychiatric disorder. PLAN: The patient was started on metformin 500 twice a day. Blood sugar will be monitored twice a day. The patient will be continued on Hytrin, Flomax, Proscar. Outpatient followup with the Neurology upon discharge. Daily Dennis care. Continue psychotropic medications per psychiatric recommendations. The patient has been medically stable to participate in activity at the [facility]. Thank you Dr. Rey for allowing me to participate in the care of this patient. JOB# [id number] MTDManisha
--- NOTE | 2017-08-14 22:35 | Psychosocial Evaluation ---
DATE OF SERVICE: 08/14/2017 JUSTIFICATION FOR HOSPITALIZATION: The patient is coming in from a care home, more psychotic, combative, unable to be cared for at a lower level of care. CHIEF COMPLAINT: "I don't know why I am here." HISTORY OF PRESENT ILLNESS: A 72-year-old male coming in from a care home, more psychotic behaviors, impulsive, unpredictable, combative, unable to be cared for at that level of care. On [id number], the patient is confused, disoriented, does not know why he is here, what's going on. PAST PSYCHIATRIC HISTORY: Unclear. He is unable to answer any questions. It is unclear if he has a diagnosis of dementia or schizophrenia. FAMILY HISTORY: Unknown. SOCIAL HISTORY: The patient is coming from a care home, otherwise unable to really answer any further questions. DRUG HISTORY: Unknown. MEDICAL HISTORY: Please see full H and P. MEDICATIONS: Noted. MENTAL STATUS EXAMINATION: Stated age, disheveled, unkempt, staring blankly. Mood "okay." Affect flat. Thought processes seemed confused. No overt SI or HI. Unclear psychotic symptoms. He does appear to be internally preoccupied. Insight and judgment diminished, poor impulse control. PROVISIONAL DIAGNOSES: Rule out dementia also psychosis, unspecified; mood, unspecified; anxiety, unspecified. MEDICAL: Please see full H and P. ESTIMATED LENGTH OF STAY: 5-7 days. ASSESSMENT: The patient requiring inpatient hospitalization, unkempt, disheveled, combative, agitated, confused appearing. PLAN: Continue to monitor and titrate medications. Given the severity of his ongoing symptoms, he is not safe discharge. [facility]# [id number]
[2017-08-15] MEDS: Multivitamin Tab PO SCH (08:10)
--- NOTE | 2017-08-15 09:17 | Progress Notes ---
DATE: 08/15/2017 SUBJECTIVE: The patient seen, chart reviewed, discussed with staff. The patient is coming from a residential, psychotic, combative, 72-year-old male. On [id number], the patient remains impulsive, unpredictable, disheveled, unkempt, staring blankly, seems to be mumbling to himself, responding to internal stimuli, isolative, guarded, suspicious. He has been following the unit rules and directions at this time. ASSESSMENT: The patient is here due to psychotic and mood decompensation, still psychotic, and responding to internal stimuli. PLAN: We will continue to monitor, given his ongoing symptoms, he is not safe for discharge. Currently on Seroquel, he can likely benefit from higher dosages, currently on 12.5 every 12 hours. We will switch him to 50 mg at night time. JOB# [id number]
[2017-08-15 20:40] LABS: URINE BILIRUBIN NEGATIVE (NEGATIVE); URINE BLOOD MODERATE (NEGATIVE); URINE GLUCOSE (UA) NEGATIVE (NEGATIVE); URINE KETONE NEGATIVE (NEGATIVE); URINE PROTEIN TRACE mg/dL (NEGATIVE); URINE UROBILINOGEN 0.2 E.U./dL (0.2 - 1.0)
[2017-08-15 20:42] LABS: URINE BACTERIA OCCASIONAL /hpf (NONE SEEN); URINE COLOR YELLOW; URINE EPITHELIAL CELLS OCCASIONAL /lpf (FEW); URINE RBC >100 /hpf (0-5); URINE WBC 0-2 /hpf (0-5)
[2017-08-16 06:51] LABS: % BASOPHILS 0.1 % (0.0-2.0); % EOSINOPHILS 6.2 % (0.0-5.0); % LYMPHOCYTES 21.7 % (20.0-50.0); % MONOCYTES 9.2 % (2.0-10.0); % NEUTROPHILS 62.8 % (40.0-80.0); HEMATOCRIT 31.7 % (41.0-60); HEMOGLOBIN 10.7 gm/dL (12-16); MEAN CELL VOLUME 85.8 fl (80-99); MEAN CORPUSCULAR HGB CONC 33.8 pg (28.0-36.0); MEAN PLATELET VOLUME 7.8 fl; RED BLOOD COUNT 3.69 Mil/cmm (3.80-5.80); RED CELL DISTRIBUTION WIDTH 15.1 % (11.5-20.0); WHITE BLOOD COUNT 4.9 Th/cmm (4.8-10.8)
[2017-08-16 06:54] LABS: PLATELET COUNT 269 Th/cmm (150-400)
[2017-08-16 07:11] LABS: ALB/GLOB RATIO 0.8 (1.0-1.8); ALKALINE PHOSPHATASE 201 U/L (34-104); BILIRUBIN,TOTAL 0.3 mg/dL (0.3-1.0); BUN - UREA NITROGEN 22 mg/dL (7-25); BUN/CREATININE RATIO 27.5; CALCIUM SERUM 8.4 mg/dL (8.6-10.3); CHLORIDE 108 mEq/L (98-107); CREATININE - SERUM 0.8 mg/dL (0.7-1.3); GLUCOSE 118 mg/dL (70-105); SGOT 53 U/L (13-39); SGPT/ALT 57 U/L (7-52); SODIUM SERUM 138 mEq/L (136-145)
[2017-08-16] MEDS: Multivitamin Tab PO SCH (10:00)
--- NOTE | 2017-08-16 11:08 | Progress Notes ---
DATE: 08/16/2017 SUBJECTIVE: Chart reviewed and the patient interviewed. Also discussed the patient's condition with the staff and reviewed records and labs. The patient continues to be disheveled and he is still restless. The patient also still has episodes of combative behavior and irritability. The patient also is still confused and still needs lots and lots of redirections. Also suspicious and paranoid. Otherwise, the patient is compliant with taking his medications with no side effects of medications. ASSESSMENT: The patient is still psychotic. TREATMENT PLAN: We will start the patient on Seroquel 50 mg twice a day. Also, continue to work monitor his behavior and condition closely and continue to work on his poor impulse control. JOB# [id number]
[2017-08-16] MEDS ORDERED: Probiotic Screen MC PRN (14:11)
[2017-08-16] MEDS: Lactobacillus Rhamnosus 10 Billion CFU Capsule PO SCH (17:08)
[2017-08-17] MEDS: Lactobacillus Rhamnosus 10 Billion CFU Capsule PO SCH (11:45)
[2017-08-17] MEDS: Multivitamin Tab PO SCH (11:46)
--- NOTE | 2017-08-17 20:07 | Progress Notes ---
DATE: 08/17/2017 SUBJECTIVE: Chart reviewed and the patient interviewed. Also discussed the patient's condition with the staff and reviewed records and labs. The patient continues to be confused and he is still disheveled. The patient also still seems to be preoccupied and is responding to internal stimuli. The patient also is easily agitated and easily irritable and having difficulty answering questions. He also still in angry mood. During interview, the patient is disheveled and he seems to be preoccupied. ASSESSMENT: The patient is still psychotic and agitated. TREATMENT PLAN: Continue monitoring his behavior and his condition closely. Also, continue adjusting psychotropic medications and follow up closely. JOB# [id number]
--- NOTE | 2017-08-18 07:59 | Diagnostic Imaging Report ---
Abdominal ultrasound HISTORY: Abnormal liver function test The liver exhibits a normal size with a homogeneous parenchyma. No focal lesions. The gallbladder appears normal. No calculi are seen. No biliary dilatation. The pancreas cannot be well visualized due to bowel gas. The kidneys appear normal bilaterally. The spleen is at the upper limits of normal in size. No other retroperitoneal or intra-abdominal abnormalities. IMPRESSION: 1. Essentially negative examination.
[2017-08-18] MEDS: Multivitamin Tab PO SCH (08:50)
[2017-08-18] MEDS: Lactobacillus Rhamnosus 10 Billion CFU Capsule PO SCH (08:51)
--- NOTE | 2017-08-18 17:01 | General Progress Note ---
Subjective - Review of Systems Service Date: 08/17/17 Subjective: Patient seen and examined doing fine no reported hematuria Objective - Results Result Diagrams: 08/16/17 06:29 08/16/17 06:29 Recent Labs: Laboratory Last Values WBC 4.9 Th/cmm (4.8-10.8) 08/16/17 06: RBC 3.69 Mil/cmm (3.80-5.80) L 08/16/17 06: Hgb 10.7 gm/dL (12-16) L 08/16/17 06:29 Hct 31.7 % (41.0-60) L 08/16/17 06: MCV 85.8 fl (80-99) 08/16/17 06: MCH 29.0 pg (27.0-31.0) 08/16/17 06: MCHC Differential 33.8 pg (28.0-36.0) 08/16/17 06: RDW 15.1 % (11.5-20.0) 08/16/17 06: Plt Count 269 Th/cmm (150-400) D 08/16/17 06:29 MPV 7.8 fl 08/16/17 06: Neutrophils % 62.8 % (40.0-80.0) 08/16/17 06: Lymphocytes % 21.7 % (20.0-50.0) 08/16/17 06: Monocytes % 9.2 % (2.0-10.0) 08/16/17 06: Eosinophils % 6.2 % (0.0-5.0) H 08/16/17 06: Basophils % 0.1 % (0.0-2.0) 08/16/17 06:29 PT 10.1 SECONDS (9.5-11.5) 08/13/17 13:35 INR 0.97 (0.5-1.4) 08/13/17 13:35 PTT (Actin FS) 26.3 SECONDS (26.0-38.0) 08/13/17 13:35 Sodium 138 mEq/L (136-145) 08/16/17 06: Potassium 4.0 mEq/L (3.5-5.1) 08/16/17 06:29 Chloride 108 mEq/L (98-107) H 08/16/17 06:29 Carbon Dioxide 25.0 mEq/L (21.0-31.0) 08/16/17 06:29 Anion Gap 9.0 (7.0-16.0) 08/16/17 06:29 BUN 22 mg/dL (7-25) 08/16/17 06:29 Creatinine 0.8 mg/dL (0.7-1.3) 08/16/17 06:29 Est GFR ( Amer) TNP 08/16/17 06:29 Est GFR (Non-Af Amer) TNP 08/16/17 06:29 BUN/Creatinine Ratio 27.5 08/16/17 06:29 Glucose 118 mg/dL (70-105) H 08/16/17 06:29 POC Glucose 102 MG/DL (70 - 105) 08/18/17 06:47 Hemoglobin A1c % 7.3 % (4.0-6.0) H 08/13/17 13:35 Calcium 8.4 mg/dL (8.6-10.3) L 08/16/17 06:29 Total Bilirubin 0.3 mg/dL (0.3-1.0) 08/16/17 06:29 AST 53 U/L (13-39) H 08/16/17 06:29 ALT 57 U/L (7-52) H 08/16/17 06:29 Alkaline Phosphatase 201 U/L (34-104) H 08/16/17 06:29 Troponin I 0.02 ng/mL (0.01-0.05) 08/13/17 13:35 Total Protein 6.3 gm/dL (6.0-8.3) 08/16/17 06:29 Albumin 2.7 gm/dL (4.2-5.5) L 08/16/17 06:29 Globulin 3.6 gm/dL 08/16/17 06:29 Albumin/Globulin Ratio 0.8 (1.0-1.8) L 08/16/17 06:29 Triglycerides 95 mg/dL (<150) 08/13/17 13:35 Cholesterol 95 mg/dL (<200) 08/13/17 13:35 LDL Cholesterol Direct 58 mg/dL (75-193) L 08/13/17 13:35 HDL Cholesterol 30 mg/dL (23-92) 08/13/17 13:35 TSH 3.08 uIU/ml (0.34-5.60) 08/13/17 13:35 Urine Source CLEAN C 08/15/17 20:00 Urine Color YELLOW 08/15/17 20:00 Urine Clarity HAZY (CLEAR) 08/15/17 20:00 Urine pH 7.0 (4.6 - 8.0) 08/15/17 20:00 Ur Specific [place] 1.010 (1.005-1.030) 08/15/17 20:00 Urine Protein TRACE mg/dL (NEGATIVE) 08/15/17 20:00 Urine Glucose (UA) NEGATIVE mg/dL (NEGATIVE) 08/15/17 20:00 Urine Ketones NEGATIVE mg/dL (NEGATIVE) 08/15/17 20:00 Urine Blood MODERATE (NEGATIVE) H 08/15/17 20:00 Urine Nitrate NEGATIVE (NEGATIVE) 08/15/17 20:00 Urine Bilirubin NEGATIVE (NEGATIVE) 08/15/17 20:00 Urine Urobilinogen 0.2 E.U./dL (0.2 - 1.0) 08/15/17 20:00 Ur Leukocyte Esterase NEGATIVE (NEGATIVE) 08/15/17 20:00 Urine RBC >100 /hpf (0-5) H 08/15/17 20:00 Urine WBC 0-2 /hpf (0-5) 08/15/17 20:00 Ur Epithelial Cells OCCASIONAL /lpf (FEW) 08/15/17 20:00 Urine Bacteria OCCASIONAL /hpf (NONE SEEN) 08/15/17 20:00 RPR NONREACTIVE (NONREACTIVE) 08/13/17 13:35 - Physical Exam Vitals and I&O: Vital Signs Temp 97.8 F 08/18/17 14:00 Pulse 69 08/18/17 14:00 Resp 20 08/18/17 14:00 BP 131/70 08/18/17 14:00 Pulse Ox 97 08/18/17 14:00 Intake & Output 08/17/17 08/18/17 08/18/17 18:59 06:59 18:59 Intake Total 800 240 Output Total 401 Balance 399 240 Intake: Oral 800 240 Output: Urine 400 Stool 1 Other: # Voids 2 # Bowel Movements 1 Stool Characteristics Soft Formed Active Medications: Current Medications Acetaminophen (Tylenol) 650 mg PO Q4HR PRN PRN Reason: Mild Pain / Temp above 100 Stop: 10/12/17 16:09 Al Hydrox/Mg Hydrox/Simethicone (Maalox) 30 ml PO Q4HR PRN PRN Reason: GI DISTRESS Stop: 10/12/17 16:09 Finasteride (Proscar) 5 mg PO DAILY SWATHI PRN Reason: Protocol Stop: 10/13/17 08:59 Last Admin: 08/18/17 08:51 Dose: 5 mg Folic Acid (Folate) 1 mg PO DAILY SWATHI Stop: 10/13/17 08:59 Last Admin: 08/18/17 08:51 Dose: 1 mg Lactobacillus Rhamnosus (Culturelle) 1 each PO DAILY SWATHI Stop: 10/15/17 15:59 Last Admin: 08/18/17 08:51 Dose: 1 each Lorazepam (Ativan) 0.5 mg PO Q4HR PRN; Protocol PRN Reason: Anxiety Stop: 09/12/17 16:07 Last Admin: 08/15/17 07:52 Dose: 0.5 mg Magnesium Hydroxide (Milk Of Magnesia) 30 ml PO HS PRN PRN Reason: Constipation Metformin HCl (Glucophage) 500 mg PO BID SWATHI Stop: 10/14/17 08:59 Last Admin: 08/18/17 16:19 Dose: 500 mg Miscellaneous (Probiotic Screen) 1 ea MC PRN PRN PRN Reason: PROTOCOL Stop: 10/15/17 14:10 Multivitamins/Vitamin C (Theragran) 1 tab PO DAILY SWATHI Stop: 10/13/17 08:59 Last Admin: 08/18/17 08:50 Dose: 1 tab Quetiapine Fumarate (Seroquel) 50 mg PO BID SWATHI PRN Reason: Protocol Stop: 10/15/17 10:59 Last Admin: 08/18/17 16:19 Dose: 50 mg Quetiapine Fumarate (Seroquel) 50 mg PO HS SWATHI PRN Reason: Protocol Stop: 10/14/17 20:59 Last Admin: 08/17/17 21:11 Dose: 50 mg Tamsulosin HCl (Flomax) 0.4 mg PO DAILY SWATHI Stop: 10/13/17 08:59 Last Admin: 08/18/17 08:51 Dose: 0.4 mg Terazosin HCl (Hytrin) 5 mg PO HS SWATHI Stop: 10/12/17 20:59 Last Admin: 08/17/17 21:14 Dose: 5 mg Zolpidem Tartrate (Ambien) 5 mg PO HS PRN PRN Reason: Insomnia Stop: 10/12/17 16:07 Cardiovascular: Regular rate Lungs: Clear to auscultation Assessment/Plan - Problem List Patient Problems: All Active Problems Alteration consciousness (Acute) R40.4 Chronic obstructive pulmonary disease with acute exacerbation (Acute) J44.1 GENERALIZED WEAKNESS POST FALL (Acute) Pneumonia (Acute) J18.9 - Assessment Assessment: Hematuria better Obstructive uropathy DM II Mental health disorder - Plan Plan: Urine Cx no significant growth Hematuria better will DC antibiotics Continue other meds Monitor blood sugar Psych mx per psychiatrist Nutritional Asmnt/Malnutr-PDOC - Dietary Evaluation Malnutrition Findings (Please click <Entered> for more info): Nutritional Asmnt/Malnutrition Start: 08/13/17 17: 50 Text: Status: Complete Freq: Document 08/13/17 17:50 GSUN (Rec: 08/13/17 17:51 GSUN [place] [id number]) Nutritional Asmnt/Malnutrition Patient General Information Nutritional Screening Consult Diagnosis ER: psychosis, anemia Pertinent Medical Hx/Surgical Hx ER report: dementia, meth abuse, smoker, alcohol, illicit drug use, schizophrenia, bipolar Subjective Information 72 year old male from SNF. RD consult for elevated glucose. Per nursing adm note, pt is orientated x1 at this time. Healthcare Analyst brought pt dinner. Observed pt eating in chair in rec room by self. No difficulties noted. Pt appeared to have a good appetite. Pt was able to provide basic nutrition hx. Pt is edentulous, denied chewing difficulties, "I eat anything and everything." No muscle fat wasting noted. Pt denied allergies, denied nutritinoal concerns at this time. Unsuitable for nutrition edu on DM due to cognitiion. Current Diet Order/ Nutrition Support [facility] soft chopped Pertinent Medications MOM, Theragran Pertinent Labs Glucose 236H, A1c 7.3H Nutritional Hx/Data Height 1.78 m Height (Calculated Centimeters) 177.8 Current Weight (lbs) 67.585 kg Weight (Calculated Kilograms) 67.6 Weight (Calculated Grams) 08837.3 [place] Body Weight 166 Weight Status Approriate GI Symptoms Skin Integrity/Comment: Esvin 21. Skin intact. Estimated Nutritional Goals BEE in Kcals: Using Current wt Calories/Kcals/Kg CBW 149lb/67.7kg Kcals Calculated 1693-2031kcal (25-30kcal/kg) Protein: Using Current wt Protein Calculated 68g (1g/kg) Fluid: ml 1693-2031ml (1ml/kcal) Nutritional Problem 1. Problem Problem Altered nutrition related laboratory values related to Etiology endocrine dysfunction aeb Signs/Symptoms: A1c 7.3H, glucose 236H Intervention/Recommendation Comments 1. Recommend [id number] mech soft chopped. Expected Outcomes/Goals Expected Outcomes/Goals 1. PO intake to meet at least 75% of estimated nutritinoal needs.
--- NOTE | 2017-08-18 21:37 | Progress Notes ---
DATE: 08/18/2017 SUBJECTIVE: Chart reviewed and the patient interviewed. Also discussed the patient's condition with the staff and reviewed records and labs. The patient is still easily agitated and he is still in irritable mood. The patient also is still restless and he is still having difficulty following directions. He also is still having mood swings and anxiety. The patient also seems to be slightly suspicious and slightly paranoid. Otherwise, the patient is compliant with taking his medications and no side effects of medications. ASSESSMENT: The patient is still agitated and psychotic. TREATMENT PLAN: Continue monitoring his behavior and his condition closely. Also, continue Seroquel and continue adjusting the dose. Also, continue to work on behavioral modification. JOB# [id number]
[2017-08-19] MEDS: Lactobacillus Rhamnosus 10 Billion CFU Capsule PO SCH (08:39)
[2017-08-19] MEDS: Multivitamin Tab PO SCH (09:11)
--- NOTE | 2017-08-19 22:12 | Progress Notes ---
DATE: 08/19/2017 SUBJECTIVE: Chart reviewed and the patient interviewed. Also discussed the patient's condition with the staff and reviewed records and labs. Also, I met with the patient's brother. The patient is still anxious and he is still easily agitated and irritable. The patient also is interacting minimally with others. He also is still disheveled. The patient needs a lot of redirections. ASSESSMENT: The patient is still paranoid. TREATMENT PLAN: Discussed with the patient, as well as with his brother further treatment options. We will continue Seroquel at same dose. Also, we will continue placement in [facility] and we will continue to follow up his condition and his behavior closely. JOB# [id number]
[2017-08-20] MEDS: Multivitamin Tab PO SCH (09:14)
[2017-08-20] MEDS: Lactobacillus Rhamnosus 10 Billion CFU Capsule PO SCH (09:14)
--- NOTE | 2017-08-20 21:46 | Progress Notes ---
DATE: 08/20/2017 SUBJECTIVE: Chart reviewed and the patient interviewed. Also discussed the patient's condition with the staff and the reviewed records and labs. Patient is still easily agitated and easily irritable. Patient also is still confused. Also, is still restless and he still has difficulty following staff directions. Also seems to be preoccupied and he is still paranoid. Also, personal hygiene is poor. During the interview, patient is preoccupied and talking to himself. He also is still restless and he still needs redirections. Patient also wants to be left alone. He is uncomfortable with Dennis catheter, but he understands the importance of having it ____. At the same time, patient needs close monitoring. ASSESSMENT: The patient is still considered to be gravely disabled and agitated. TREATMENT PLAN: We will continue monitoring his behavior. Also, continue Seroquel was 50 mg twice a day and 50 mg at bedtime. Also, continue to work on his psychosis and his poor hygiene. JOB# [id number]
[2017-08-21] MEDS: Multivitamin Tab PO SCH (09:00)
[2017-08-21] MEDS: Lactobacillus Rhamnosus 10 Billion CFU Capsule PO SCH (09:00)
--- NOTE | 2017-08-21 18:24 | General Progress Note ---
Subjective - Review of Systems Service Date: 08/21/17 Subjective: Patient seen and examined Earlier today pt's nurse ( Juan R) reported patient noticed to have blocked Dennis cath Patient was evaluated by ER physician and Dennis was flushed and noted to have good urine flow. Also patient c/o constipation Objective - Results Result Diagrams: 08/16/17 06:29 08/16/17 06:29 Recent Labs: Laboratory Last Values WBC 4.9 Th/cmm (4.8-10.8) 08/16/17 06:29 RBC 3.69 Mil/cmm (3.80-5.80) L 08/16/17 06:29 Hgb 10.7 gm/dL (12-16) L 08/16/17 06:29 Hct 31.7 % (41.0-60) L 08/16/17 06:29 MCV 85.8 fl (80-99) 08/16/17 06: MCH 29.0 pg (27.0-31.0) 08/16/17 06: MCHC Differential 33.8 pg (28.0-36.0) 08/16/17 06:29 RDW 15.1 % (11.5-20.0) 08/16/17 06:29 Plt Count 269 Th/cmm (150-400) D 08/16/17 06:29 MPV 7.8 fl 08/16/17 06:29 Neutrophils % 62.8 % (40.0-80.0) 08/16/17 06: Lymphocytes % 21.7 % (20.0-50.0) 08/16/17 06: Monocytes % 9.2 % (2.0-10.0) 08/16/17 06:29 Eosinophils % 6.2 % (0.0-5.0) H 08/16/17 06: Basophils % 0.1 % (0.0-2.0) 08/16/17 06:29 PT 10.1 SECONDS (9.5-11.5) 08/13/17 13:35 INR 0.97 (0.5-1.4) 08/13/17 13:35 PTT (Actin FS) 26.3 SECONDS (26.0-38.0) 08/13/17 13:35 Sodium 138 mEq/L (136-145) 10/02/17 06:29 Potassium 4.0 mEq/L (3.5-5.1) 08/16/17 06:29 Chloride 108 mEq/L (98-107) H 08/16/17 06:29 Carbon Dioxide 25.0 mEq/L (21.0-31.0) 08/16/17 06:29 Anion Gap 9.0 (7.0-16.0) 08/16/17 06:29 BUN 22 mg/dL (7-25) 08/16/17 06:29 Creatinine 0.8 mg/dL (0.7-1.3) 08/16/17 06:29 Est GFR ( Amer) TNP 08/16/17 06:29 Est GFR (Non-Af Amer) TNP 08/16/17 06:29 BUN/Creatinine Ratio 27.5 08/16/17 06:29 Glucose 118 mg/dL (70-105) H 08/16/17 06:29 POC Glucose 100 MG/DL (70 - 105) 08/21/17 06:09 Hemoglobin A1c % 7.3 % (4.0-6.0) H 08/13/17 13:35 Calcium 8.4 mg/dL (8.6-10.3) L 08/16/17 06:29 Total Bilirubin 0.3 mg/dL (0.3-1.0) 08/16/17 06:29 AST 53 U/L (13-39) H 08/16/17 06:29 ALT 57 U/L (7-52) H 08/16/17 06:29 Alkaline Phosphatase 201 U/L (34-104) H 08/16/17 06:29 Troponin I 0.02 ng/mL (0.01-0.05) 08/13/17 13:35 Total Protein 6.3 gm/dL (6.0-8.3) 08/16/17 06:29 Albumin 2.7 gm/dL (4.2-5.5) L 08/16/17 06:29 Globulin 3.6 gm/dL 08/16/17 06:29 Albumin/Globulin Ratio 0.8 (1.0-1.8) L 08/16/17 06:29 Triglycerides 95 mg/dL (<150) 08/13/17 13:35 Cholesterol 95 mg/dL (<200) 08/13/17 13:35 LDL Cholesterol Direct 58 mg/dL (75-193) L 08/13/17 13:35 HDL Cholesterol 30 mg/dL (23-92) 08/13/17 13:35 TSH 3.08 uIU/ml (0.34-5.60) 08/13/17 13:35 Urine Source CLEAN C 08/15/17 20:00 Urine Color YELLOW 08/15/17 20:00 Urine Clarity HAZY (CLEAR) 08/15/17 20:00 Urine pH 7.0 (4.6 - 8.0) 08/15/17 20:00 Ur Specific [place] 1.010 (1.005-1.030) 08/15/17 20:00 Urine Protein TRACE mg/dL (NEGATIVE) 08/15/17 20:00 Urine Glucose (UA) NEGATIVE mg/dL (NEGATIVE) 08/15/17 20:00 Urine Ketones NEGATIVE mg/dL (NEGATIVE) 08/15/17 20:00 Urine Blood MODERATE (NEGATIVE) H 08/15/17 20:00 Urine Nitrate NEGATIVE (NEGATIVE) 08/15/17 20:00 Urine Bilirubin NEGATIVE (NEGATIVE) 08/15/17 20:00 Urine Urobilinogen 0.2 E.U./dL (0.2 - 1.0) 08/15/17 20:00 Ur Leukocyte Esterase NEGATIVE (NEGATIVE) 08/15/17 20:00 Urine RBC >100 /hpf (0-5) H 08/15/17 20:00 Urine WBC 0-2 /hpf (0-5) 08/15/17 20:00 Ur Epithelial Cells OCCASIONAL /lpf (FEW) 08/15/17 20:00 Urine Bacteria OCCASIONAL /hpf (NONE SEEN) 08/15/17 20:00 RPR NONREACTIVE (NONREACTIVE) 08/13/17 13:35 - Physical Exam Vitals and I&O: Vital Signs Temp 97.6 F 08/21/17 07:27 Pulse 61 08/21/17 07:27 Resp 19 08/21/17 07:27 BP 131/75 08/21/17 07:27 Pulse Ox 97 08/21/17 07:27 Intake & Output 08/20/17 08/21/17 08/21/17 18:59 06:59 18:59 Intake Total 1100 240 360 Output Total 600 200 200 Balance 500 40 160 Intake: Oral 1100 240 360 Output: Urine 600 200 200 Other: # Bowel Movements 1 Active Medications: Current Medications Acetaminophen (Tylenol) 650 mg PO Q4HR PRN PRN Reason: Mild Pain / Temp above 100 Stop: 10/12/17 16:09 Al Hydrox/Mg Hydrox/Simethicone (Maalox) 30 ml PO Q4HR PRN PRN Reason: GI DISTRESS Stop: 10/12/17 16:09 Finasteride (Proscar) 5 mg PO DAILY SWATHI PRN Reason: Protocol Stop: 10/13/17 08:59 Last Admin: 08/21/17 09:00 Dose: 5 mg Folic Acid (Folate) 1 mg PO DAILY SWATHI Stop: 10/13/17 08:59 Last Admin: 08/21/17 09:00 Dose: 1 mg Lactobacillus Rhamnosus (Culturelle) 1 each PO DAILY SWATHI Stop: 10/15/17 15:59 Last Admin: 08/21/17 09:00 Dose: 1 each Lorazepam (Ativan) 0.5 mg PO Q4HR PRN; Protocol PRN Reason: Anxiety Stop: 09/12/17 16:07 Last Admin: 08/15/17 07:52 Dose: 0.5 mg Metformin HCl (Glucophage) 500 mg PO BID SWATHI Stop: 10/14/17 08:59 Last Admin: 08/21/17 17:23 Dose: 500 mg Miscellaneous (Probiotic Screen) 1 ea MC PRN PRN PRN Reason: PROTOCOL Stop: 10/15/17 14:10 Multivitamins/Vitamin C (Theragran) 1 tab PO DAILY SWATHI Stop: 10/13/17 08:59 Last Admin: 08/21/17 09:00 Dose: 1 tab Quetiapine Fumarate (Seroquel) 50 mg PO BID SWATHI PRN Reason: Protocol Stop: 10/15/17 10:59 Last Admin: 08/21/17 17:24 Dose: 50 mg Quetiapine Fumarate (Seroquel) 50 mg PO HS SWATHI PRN Reason: Protocol Stop: 10/14/17 20:59 Last Admin: 08/20/17 20:36 Dose: 50 mg Tamsulosin HCl (Flomax) 0.4 mg PO DAILY SWATHI Stop: 10/13/17 08:59 Last Admin: 08/21/17 09:00 Dose: 0.4 mg Terazosin HCl (Hytrin) 5 mg PO HS SWATHI Stop: 10/12/17 20:59 Last Admin: 08/20/17 20:36 Dose: 5 mg Zolpidem Tartrate (Ambien) 5 mg PO HS PRN PRN Reason: Insomnia Stop: 10/12/17 16:07 Cardiovascular: Regular rate Lungs: Clear to auscultation Assessment/Plan - Problem List Patient Problems: All Active Problems Alteration consciousness (Acute) R40.4 Chronic obstructive pulmonary disease with acute exacerbation (Acute) J44.1 GENERALIZED WEAKNESS POST FALL (Acute) Pneumonia (Acute) J18.9 - Assessment Assessment: Acute urinary retention Constipation Obstructive uropathy DM II Mental health disorder - Plan Plan: Monitor Urine flow Fleet enema if no BM after MOM Metformin Plan of care discussed with nursing staff Nutritional Asmnt/Malnutr-PDOC - Dietary Evaluation Malnutrition Findings (Please click <Entered> for more info): Nutritional Asmnt/Malnutrition Start: 08/13/17 17: 50 Text: Status: Complete Freq: Document 08/13/17 17:50 GSUN (Rec: 08/13/17 17:51 GSUN [place] [id number]) Nutritional Asmnt/Malnutrition Patient General Information Nutritional Screening Consult Diagnosis ER: psychosis, anemia Pertinent Medical Hx/Surgical Hx ER report: dementia, meth abuse, smoker, alcohol, illicit drug use, schizophrenia, bipolar Subjective Information 72 year old male from SNF. RD consult for elevated glucose. Per nursing adm note, pt is orientated x1 at this time. Front Desk Representative brought pt dinner. Observed pt eating in chair in rec room by self. No difficulties noted. Pt appeared to have a good appetite. Pt was able to provide basic nutrition hx. Pt is edentulous, denied chewing difficulties, "I eat anything and everything." No muscle fat wasting noted. Pt denied allergies, denied nutritinoal concerns at this time. Unsuitable for nutrition edu on DM due to cognitiion. Current Diet Order/ Nutrition Support [facility] soft chopped Pertinent Medications MOM, Theragran Pertinent Labs Glucose 236H, A1c 7.3H Nutritional Hx/Data Height 1.78 m Height (Calculated Centimeters) 177.8 Current Weight (lbs) 67.585 kg Weight (Calculated Kilograms) 67.6 Weight (Calculated Grams) 26240.3 [place] Body Weight 166 Weight Status Approriate GI Symptoms Skin Integrity/Comment: Esvin 21. Skin intact. Estimated Nutritional Goals BEE in Kcals: Using Current wt Calories/Kcals/Kg CBW 149lb/67.7kg Kcals Calculated 1693-2031kcal (25-30kcal/kg) Protein: Using Current wt Protein Calculated 68g (1g/kg) Fluid: ml 1693-2031ml (1ml/kcal) Nutritional Problem 1. Problem Problem Altered nutrition related laboratory values related to Etiology endocrine dysfunction aeb Signs/Symptoms: A1c 7.3H, glucose 236H Intervention/Recommendation Comments 1. Recommend [id number] soft chopped. Expected Outcomes/Goals Expected Outcomes/Goals 1. PO intake to meet at least 75% of estimated nutritinoal needs.
[2017-08-22] MEDS: Multivitamin Tab PO SCH (08:19)
[2017-08-22] MEDS: Lactobacillus Rhamnosus 10 Billion CFU Capsule PO SCH (08:20)
--- NOTE | 2017-08-23 02:05 | Progress Notes ---
DATE: 08/22/2017 Case was discussed with staff of the patient, reviewed records. The patient has been refusing to be showered. Continues to be internally preoccupied, unpredictable, impulsive, needing redirection. Apparently his catheter was ____, irrigated and now he is able to pass urine. Continues to be on safe plan for self-care, talking to himself at times. Continues to have poor insight. No side effects with the medication, no sedation, no nausea, no extrapyramidal symptoms. We will continue to work with the patient in group therapy, milieu therapy, adjust medications as needed. JOB# [id number]
--- NOTE | 2017-08-23 02:14 | Progress Notes ---
DATE: 08/21/2017 Case was discussed with staff of the patient, reviewed records. Covering for Dr. Rey. This is a 72-year-old male who came from a [facility]dc. He was psychotic, impulsive, unpredictable, confused, unable to participate in meaningful conversation or make safe plan for self-care and give any information with a history of dementia and unspecified mood disorder. The patient has a catheter and understands the importance of sepsis. The patient has benign prostatic hypertrophy. He is on Seroquel, Flomax, temazepam, Ambien, and ____ folic acid, Proscar, metformin, probiotics, and multivitamins. I will continue the patient in group therapy, milieu therapy, and adjust medication as needed. [facility]# [id number]
[2017-08-23] MEDS: Lactobacillus Rhamnosus 10 Billion CFU Capsule PO SCH (08:23)
[2017-08-23] MEDS: Multivitamin Tab PO SCH (08:23)
--- NOTE | 2017-08-23 22:24 | Progress Notes ---
DATE: 08/23/2017 SUBJECTIVE: Chart reviewed and the patient interviewed. Also discussed the patient's condition with the staff and reviewed records and labs. The patient is still in a depressed mood and he is sleeping a lot. The patient also is still confused and forgetful and unable to provide any safe plan for self-care. He still also wants to be left alone, but other times he seems to be wandering around in a confused state. The patient seems to be slightly easier to redirect him and calmer since changing the catheter and currently has a new catheter. ASSESSMENT: The patient is still confused and agitated. TREATMENT PLAN: We will continue monitoring his behavior and his condition closely. Also, continue to work on his confusion and his behavior and followup. JOB# [id number]
[2017-08-24] MEDS: Multivitamin Tab PO SCH (08:56)
[2017-08-24] MEDS: Lactobacillus Rhamnosus 10 Billion CFU Capsule PO SCH (10:02)
--- NOTE | 2017-08-24 20:19 | Progress Notes ---
DATE: 08/24/2017 SUBJECTIVE: Chart reviewed and the patient interviewed. Also, discussed the patient's condition with the staff and reviewed records and labs. The patient is still depressed and at the same time agitated. Also, still confused. Also, personal hygiene is still poor. His interaction with others is minimum. The patient denies any suicidal ideations, but he wants to be left alone. During interview, the patient is rambling and he is preoccupied. ASSESSMENT: The patient is still psychotic. TREATMENT PLAN: We will continue monitoring his behavior and continue working on adjusting psychotropic medications and followup. JOB# [id number]
[2017-08-25] MEDS: Multivitamin Tab PO SCH (08:24)
[2017-08-25] MEDS: Lactobacillus Rhamnosus 10 Billion CFU Capsule PO SCH (08:24)
--- NOTE | 2017-08-25 08:33 | Progress Notes ---
DATE: 08/25/2017 SUBJECTIVE: Chart reviewed and the patient interviewed. Also discussed the patient's condition with the staff and reviewed records and labs. The patient is still extremely irritable and is still agitated. The patient also is still disheveled and personal hygiene is still poor. The patient also still has periods and episodes of yelling for no apparent reason. He also had difficulty with his interaction and difficulty with his moods. Otherwise, the patient is compliant with taking his medications with no side effects of medications. ASSESSMENT: The patient is still psychotic and agitated. TREATMENT PLAN: We will continue monitoring his behavior and his condition closely. Also, we will increase Seroquel to 50 mg twice a day and 75 mg at bedtime, hopefully to help with his agitation and his confusion. The patient also continue to work on his personal hygiene and the patient's personal hygiene is still very poor. Also, working with outpatient case manager in regard to discharge plans and possible placement issue. JOB# [id number]
--- NOTE | 2017-08-26 07:25 | Discharge Summary ---
DATE OF DISCHARGE: 08/25/2017 AGE: 72. SEX: Male. PHYSICIAN: Dr. Rey. FINAL DIAGNOSIS: PRIMARY DIAGNOSIS: Unspecified psychosis. SECONDARY DIAGNOSIS: Dementia, mild to moderate. REASON FOR HOSPITALIZATION: The patient was admitted to the hospital because of increased agitation and aggressive behavior. The patient also was in angry and in irritable mood. He also was unpredictable and he was showing severe aggressive behavior. HOSPITAL COURSE: The patient also wanted to be left alone. The patient was given Seroquel and the dose adjusted to 50 mg twice a day and 75 mg at bedtime. Gradually, the patient's affect was brighter. The patient was compliant with medications. Placement was an issue and [facility] accepted the patient and the patient was discharged there. PHYSICAL EXAMINATION: Physical exam of the patient showed no major medical issues and medical condition was stable, while hospitalization. AFTER DISCHARGE PLANS: The patient was discharged from the hospital to [facility] and was planned to be followed there. EXPECTED OUTCOME AFTER DISCHARGE: Fair, if the patient continues with his outpatient treatment and follow up with discharge plans. [facility]# [id number]
== END 2017-08-25 16:45 | DRG 885 ==
LOC: ER 13:13 → GERO 14:44
PROVIDERS: ADMIT Psychiatry & Neurology Psychiatry; ATTEND Psychiatry & Neurology Psychiatry
DX: F29 Unspecified psychosis not due to a substance or known physiological condition (principal); F03.90 Unspecified dementia, unspecified severity, without behavioral disturbance, psychotic disturbance, mood disturbance, and anxiety; E11.9 Type 2 diabetes mellitus without complications; F39 Unspecified mood [affective] disorder; N13.8 Other obstructive and reflux uropathy; D64.9 Anemia, unspecified; F41.9 Anxiety disorder, unspecified; N40.1 Benign prostatic hyperplasia with lower urinary tract symptoms; F17.210 Nicotine dependence, cigarettes, uncomplicated; R31.9 Hematuria, unspecified; Z82.49 Family history of ischemic heart disease and other diseases of the circulatory system; Z82.3 Family history of stroke
CPT/HCPCS: 36415-UA; 71010-TC; 76700-TC; 80053-TC; 80061-TC; 81001-TC; 82948-90; 83036-90; 84443-TC; 84484-TC; 85025-TC; 85610-TC; 85730-TC; 86592-TC; 87086-90; 93005; Z7610

== ENCOUNTER 2017-09-18 21:13 | Emergency (ER) | payer MEDICARE ==
[2017-09-18] MEDS ORDERED: Sodium Chloride 0.9% 1,000 ML IV ONE (22:10)
[2017-09-18 22:27] LABS: % BASOPHILS 0.3 % (0.0-2.0); % EOSINOPHILS 10.5 % (0.0-5.0); % LYMPHOCYTES 17.3 % (20.0-50.0); % MONOCYTES 10.3 % (2.0-10.0); % NEUTROPHILS 61.6 % (40.0-80.0); EOSINOPHILE ABSOLUTE 0.6 Th/cmm (0.1-0.4); HEMATOCRIT 32.6 % (41.0-60); HEMOGLOBIN 10.9 gm/dL (12-16); LYMPHOCYTE ABSOLUTE 1.1 Th/cmm (1.5-3.0); MEAN CELL VOLUME 84.6 fl (80-99); MEAN CORPUSCULAR HEMOGLOBIN 28.2 pg (27.0-31.0); MEAN CORPUSCULAR HGB CONC 33.3 pg (28.0-36.0); MEAN PLATELET VOLUME 8.7 fl; MONOCYTE ABSOLUTE 0.6 Th/cmm (0.3-1.0); NEUTROPHILE ABSOLUTE 3.8 Th/cmm (1.8-8.0); RED BLOOD COUNT 3.85 Mil/cmm (3.80-5.80); RED CELL DISTRIBUTION WIDTH 14.7 % (11.5-20.0)
[2017-09-18] MEDS ORDERED: Sodium Chloride 0.9% 500 ML IV ONE (22:29)
[2017-09-18 22:40] LABS: INR 0.95 (0.5-1.4); PROTHROMBIN TIME (TEST) 9.9 SECONDS (9.5-11.5)
[2017-09-18 22:42] LABS: ANION GAP 8.3 (7.0-16.0); BUN - UREA NITROGEN 15 mg/dL (7-25); CALCIUM SERUM 8.9 mg/dL (8.6-10.3); CARBON DIOXIDE 23.2 mEq/L (21.0-31.0); CHLORIDE 105 mEq/L (98-107); CREATININE - SERUM 0.7 mg/dL (0.7-1.3); GLUCOSE 111 mg/dL; POTASSIUM SERUM 3.5 mEq/L (3.5-5.1); SODIUM SERUM 133 mEq/L (136-145)
[2017-09-18 22:54] LABS: PLATELET COUNT 138 Th/cmm (150-400); WHITE BLOOD COUNT 6.1 Th/cmm (4.8-10.8)
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
[2017-09-18] MEDS ORDERED: Mag Sulfate 2gm/50mL Premix 2 GM/50 ML BAG IV ONE (23:28)
[2017-09-18] MEDS ORDERED: Potassium Chloride 20 mEq ER Tab PO ONE (23:31)
[2017-09-18] MEDS ORDERED: Piperacillin Sodium/Tazobact 3.375 gm Vial IV ONE (23:33)
[2017-09-19] MEDS ORDERED: Potassium Chloride 20 mEq ER Tab PO ONE (00:02)
[2017-09-19] MEDS ORDERED: Mag Sulfate 2gm/50mL Premix 2 GM/50 ML BAG IV ONE (00:05)
--- NOTE | 2017-09-19 07:41 | ER Physician Documentation ---
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 We got some lab work up on him. Sodium 133, potassium is 3.5. The patient is given 40 mEq of KCl p.o. by mouth, chloride is 105, CO2 23.2, glucose is 111, BUN is 15, and creatinine is 0.7. BUN and creatinine ratio is 21.4, calcium is 8.9. Ethyl alcohol is within normal limits 10. White count is 6.1, hemoglobin is 10.9, hematocrit is 32.6, and platelet count is 138,000. Lymphocytes are 17.3, polys are 61.3, and eosinophils 10.3. Protime is 9.9. The patient does not need any vitamin K to be given. The patient's magnesium level is 1.7. Magnesium sulfate 2 grams IV has been given. After this, the patient should be ready to be discharged to home once all the medications, potassium, etc. are given. FINAL DIAGNOSES: 1. Dennis catheter, which is inside him for 2 weeks followed by hematuria of about 50 mL and this has stopped. The patient was given IV fluids and supplemental medications and antibiotics for prevention and urine culture could not be obtained as no urine was obtained. IV fluids have been given. 2. Other diagnosis, the patient states that the patient was diabetic in the past, but glucose level here is 111. I do not see any diabetes mellitus. 3. Hypokalemia and hypomagnesemia. These were both corrected for the patient and hopefully the patient goes home and recovers. Thank you again. The patient is in bed #6 and he will be going home soon. JOB# [id number]
[2017-09-19] MEDS ORDERED: Lactobacillus Rhamnosus 10 Billion CFU Capsule PO SCH (09:00)
== END 2017-09-19 03:50 | disposition home or self-care (01) ==
LOC: ER 21:13
DX: T83.84XA Pain due to genitourinary prosthetic devices, implants and grafts, initial encounter (principal)
CPT/HCPCS: 99285; 96365; 96366; 96368; 36415; 85025; 85610; 80320; 83735; 80048; J2543; J3475; J3370; J7030

== ENCOUNTER 2017-11-27 16:03 | Inpatient (IN) | payer MEDICARE ==
--- NOTE | 2017-11-27 16:33 | ED Physician Chart ---
ED Chief Complaint/HPI - Patient Information Date Seen:: 11/27/17 Time Seen:: 16:33 Chief Complaint:: PAIN IN THE RT FOOT AND LEG FOR UNKN DURATION History of Present Illness:: THIS 72 YEAR OLD MALE CAME TO THE ED FOR PAIN IN HIS RT FOOT. THE PATIENT IS DISORIENTED TO DAY OF THE WEEK. HE WAS ORIENTED TO HIS NAME AND THAT HE WAS IN A HOSPITAL. THE PT ALLEGES THAT HE HAD BEEN AT [facility] THIS AM BECAUSE HE DIDN'T LIKE THE CARE HE HAD RECEIVED AND THAT HE WALKED TO [facility] BECAUSE HE LIKED THIS HOSPITAL BETTER. HIS RIGHT LEG AND FOOT HAD BEEN HURTING FOR AN UNCLEAR LENGTH OF TIME AND HE COULDN'T RECALL AND FALL OR INJURY. HE WAS CONFUSED AND I FIND IT HARD TO BELIEVE HIS VERSION OF THE THE STORY BECAUSE HE WAS BARELY ABLE TO STAND ALONE AND COULD ONLY TAKE 1 STEP WITH THE RIGHT FOOT DUE TO PAIN. THIS WAS WITH HIME BEING SUPPORTED BY NURSING. T T ON REVIEWING CHARTS FROM PRIOR VISITS, HE WAS SEEN HERE 04/16/16 FOR AN INJUY TO HIS RT FOOT AND A FACIAL LAC THAT WAS REPAIRED. HE WAS ALSO SEEN ON 09/18/17 FOR REMOVAL OF A KLEIN CATHETER THAT HAD BEEN IN HIM FOR ABOUT 2 WKS. Allergies:: Allergies Allergy/AdvReac Type Severity Reaction Status Date / Time No Known Allergies Allergy Verified 09/18/17 21:51 Vitals:: Vital Signs - 8 hr 11/27/17 16:15 Temp 98.8 F HR 107 RR 22 BP 144/59 O2 Sat % 96 ED Review of Systems - Review of Systems General/Constitutional: No fever, No chills, Weakness, Other (ROS UNRELIABLE DO TO CONFUSED MENTAL STATUS.) Skin: No rash Eyes: No loss of vision, No diplopia Neck: No neck pain Cardio Vascular: No chest pain, No edema (HOWEVER PHYSICAL EXAM SHOW PROINANT EDEMA IN RT LEG DOWN TO ABOUT THE ANKLE) Pulmonary: No SOB, No cough GI: No nausea, No vomiting, No diarrhea, No pain G/U: No dysuria, No hematuria Musculoskeletal: Bone or joint pain (RT LEG AND FOOT), No back pain Endocrine: No polyuria, No polydipsia, Other Psychiatric: Prior psych history (HX OF METHAMPHETAMINE ABUSE) Allergic/Immuno: No urticaria Neurological: Weakness (RT LEG WITH UNSTEADY GAIT) Family Medical History - Family Member Mother History Unknown: Yes Son History Unknown: Yes Ethnicity: Unknown Living Status: Unknown Hx Family Cancer: Yes Hx Family Coronary Artery Disease: Yes Hx Family Congestive Heart Failure: No Hx Family Hypertension: No Hx Family Stroke: Yes Hx Family Diabetes: No Hx Family Seizures: No Hx Family Dementia: No Hx Family AIDS: No Hx Family HIV: No Hx Family COPD: No Hx Family Hepatitis: No Hx Family Psychiatric Problems: No Hx Family Tuberculosis: No Father History Unknown: Yes Ethnicity: Non- Living Status: Hx Family Cancer: No Hx Family Coronary Artery Disease: No Hx Family Congestive Heart Failure: Yes Hx Family Hypertension: No Hx Family Stroke: No Hx Family Diabetes: No Hx Family Seizures: No Hx Family Dementia: No Hx Family AIDS: No Hx Family HIV: No Hx Family COPD: No Hx Family Hepatitis: No Hx Family Psychiatric Problems: No Hx Family Tuberculosis: No ED Physical Exam - Physical Examination Other Gen/Cons comments:: AROUSABLE, CONFUSED, OR X 2 AT BEST. UNKEPT AND DIRTY. HOMELESS. Head: Atraumatic Eyes: Lids, conjuctiva normal, PERRL Other Skin comments:: THE PT'S RT LEG IS SWOLLEN, RED AND APPEARS ACUTELY INFECTED WITH ULCERATIONS AND A CREAM COLORED EXUDATE. THE FOOT DOES NOT APPEAR DEFORMED. TOE NAILS ON BOTH FEET ARE HYPERTROPHIC AND DISCOLORED. CAPILLARY REFILL LESS THAN 2 SECONDS IN BOTH FEET. ENMT: External ears, nose nl Other ENMT comments:: THE PATIENT HAS MARKEDLY DRY ORAL MUCOSA. TONGUE IS AND SHRIVELLED. GAG REFLEX IS INTACT. Neck: Nontender, No JVD, No bruit, No stridor Respiratory: Nl effort/Exclusion Other Respiratory comments:: NO RALES BUT POSITIVE EXPIRATORY WHEEZING IS SCATTERED REGIONS. Cardio Vascular: No murmur, gallop, rubs, NL S1 S2 Other Cardio Vascular comments:: ADEQUATE PEDAL PULSES IN BOTH FEET. GI: No tenderness/rebounding/guarding, No organomegaly, Nondistended, No mass/ bruits Other Extremities comments:: PT WITH SWELLING AND EXUDATE IN RT LEG, WARMTH AND ERYTHEMA Neuro/Psych: Normal sensory exam (UNABLE TO STAND UNASSISTED AND ONLY ABLE TO TAKE 1 STEP.) Misc: No paraspinal tenderness ED Labs/Radiology/EKG Results - Lab Results Results: Laboratory Tests 11/27/17 11/27/17 11/27/17 16:45 16:45 16:45 WBC 25.2 H* D RBC 3.74 L Hgb 8.1 L Hct 26.1 L D MCV 69.8 L MCH 21.7 L MCHC Differential 31.1 RDW 17.4 Plt Count 287 D MPV 9.0 Band Neutrophils % 8 Neutrophils (Manual) 83 H Lymphocytes 1 L Monocytes 7 Metamyelocytes 1 H Hypochromia 2+ Platelet Estimate ADEQUATE Anisocytosis 1+ Microcytosis 3+ RBC Morph Micro Appear ABNORMAL ESR Sodium 132 L Potassium 3.7 Chloride 102 Carbon Dioxide 19.4 L Anion Gap 14.3 BUN 26 H Creatinine 1.1 Est GFR ( Amer) TNP Est GFR (Non-Af Amer) TNP BUN/Creatinine Ratio 23.6 Glucose 231 H POC Glucose Hemoglobin A1c % Whole Bld Lactic Acid 2.20 H* Calcium 8.4 L Magnesium Total Bilirubin 0.7 AST 51 H ALT 25 Alkaline Phosphatase 143 H C-Reactive Protein Total Protein 7.1 Albumin 3.0 L Globulin 4.1 Albumin/Globulin Ratio 0.7 L Triglycerides Cholesterol LDL Cholesterol Direct HDL Cholesterol TSH Urine Source Urine Color Urine Clarity Urine pH Ur Specific Shepherd Urine Protein Urine Glucose (UA) Urine Ketones Urine Blood Urine Nitrate Urine Bilirubin Urine Urobilinogen Ur Leukocyte Esterase Urine RBC Urine WBC Ur Epithelial Cells Amorphous Sediment Urine Bacteria Blood Type Antibody Screen Crossmatch 11/27/17 11/27/17 11/27/17 16:45 18:47 21:15 WBC RBC Hgb Hct MCV MCH MCHC Differential RDW Plt Count MPV Band Neutrophils % Neutrophils (Manual) Lymphocytes Monocytes Metamyelocytes Hypochromia Platelet Estimate Anisocytosis Microcytosis RBC Morph Micro Appear ESR Sodium Potassium Chloride Carbon Dioxide Anion Gap BUN Creatinine Est GFR ( Amer) Est GFR (Non-Af Amer) BUN/Creatinine Ratio Glucose POC Glucose Hemoglobin A1c % 8.0 H Whole Bld Lactic Acid 1.23 Calcium Magnesium Total Bilirubin AST ALT Alkaline Phosphatase C-Reactive Protein Total Protein Albumin Globulin Albumin/Globulin Ratio Triglycerides Cholesterol LDL Cholesterol Direct HDL Cholesterol TSH Urine Source RANDOM Urine Color DARK YELLOW Urine Clarity SLIGHTLY HAZY Urine pH 6.0 Ur Specific Shepherd 1.020 Urine Protein 100 H Urine Glucose (UA) 100 H Urine Ketones NEGATIVE Urine Blood MODERATE H Urine Nitrate NEGATIVE Urine Bilirubin SMALL H Urine Urobilinogen 2.0 Ur Leukocyte Esterase TRACE H Urine RBC 2-5 H Urine WBC 6-10 H Ur Epithelial Cells OCCASIONAL Amorphous Sediment FEW URATES Urine Bacteria FEW Blood Type Antibody Screen Crossmatch 11/27/17 11/28/17 11/28/17 22:09 05:45 05:45 WBC 20.3 H* RBC 3.30 L Hgb 7.2 L* Hct 23.0 L D MCV 69.7 L MCH 21.8 L MCHC Differential 31.3 RDW 18.1 Plt Count 257 MPV 9.4 Band Neutrophils % Neutrophils (Manual) Lymphocytes Monocytes Metamyelocytes Hypochromia Platelet Estimate Anisocytosis Microcytosis RBC Morph Micro Appear ESR 51 H Sodium Potassium Chloride Carbon Dioxide Anion Gap BUN Creatinine Est GFR ( Amer) Est GFR (Non-Af Amer) BUN/Creatinine Ratio Glucose POC Glucose 153 H Hemoglobin A1c % Whole Bld Lactic Acid Calcium Magnesium 2.0 Total Bilirubin AST ALT Alkaline Phosphatase C-Reactive Protein Total Protein Albumin Globulin Albumin/Globulin Ratio Triglycerides 52 Cholesterol 63 LDL Cholesterol Direct 34 L HDL Cholesterol 22 L TSH Urine Source Urine Color Urine Clarity Urine pH Ur Specific Shepherd Urine Protein Urine Glucose (UA) Urine Ketones Urine Blood Urine Nitrate Urine Bilirubin Urine Urobilinogen Ur Leukocyte Esterase Urine RBC Urine WBC Ur Epithelial Cells Amorphous Sediment Urine Bacteria Blood Type Antibody Screen Crossmatch 11/28/17 11/28/17 11/28/17 05:45 05:45 05:45 WBC RBC Hgb Hct MCV MCH MCHC Differential RDW Plt Count MPV Band Neutrophils % Neutrophils (Manual) Lymphocytes Monocytes Metamyelocytes Hypochromia Platelet Estimate Anisocytosis Microcytosis RBC Morph Micro Appear ESR Sodium 135 L Potassium 3.7 Chloride 109 H Carbon Dioxide 19.4 L Anion Gap 10.3 BUN 20 Creatinine 0.8 Est GFR ( Amer) TNP Est GFR (Non-Af Amer) TNP BUN/Creatinine Ratio 25.0 Glucose 213 H POC Glucose Hemoglobin A1c % Whole Bld Lactic Acid Calcium 7.9 L Magnesium Total Bilirubin 0.6 AST 34 ALT 19 Alkaline Phosphatase 113 H C-Reactive Protein 22.1 H Total Protein 6.0 Albumin 2.5 L Globulin 3.5 Albumin/Globulin Ratio 0.7 L Triglycerides Cholesterol LDL Cholesterol Direct HDL Cholesterol TSH 1.44 Urine Source Urine Color Urine Clarity Urine pH Ur Specific Shepherd Urine Protein Urine Glucose (UA) Urine Ketones Urine Blood Urine Nitrate Urine Bilirubin Urine Urobilinogen Ur Leukocyte Esterase Urine RBC Urine WBC Ur Epithelial Cells Amorphous Sediment Urine Bacteria Blood Type Antibody Screen Crossmatch 11/28/17 09:15 WBC RBC Hgb Hct MCV MCH MCHC Differential RDW Plt Count MPV Band Neutrophils % Neutrophils (Manual) Lymphocytes Monocytes Metamyelocytes Hypochromia Platelet Estimate Anisocytosis Microcytosis RBC Morph Micro Appear ESR Sodium Potassium Chloride Carbon Dioxide Anion Gap BUN Creatinine Est GFR ( Amer) Est GFR (Non-Af Amer) BUN/Creatinine Ratio Glucose POC Glucose Hemoglobin A1c % Whole Bld Lactic Acid Calcium Magnesium Total Bilirubin AST ALT Alkaline Phosphatase C-Reactive Protein Total Protein Albumin Globulin Albumin/Globulin Ratio Triglycerides Cholesterol LDL Cholesterol Direct HDL Cholesterol TSH Urine Source Urine Color Urine Clarity Urine pH Ur Specific Shepherd Urine Protein Urine Glucose (UA) Urine Ketones Urine Blood Urine Nitrate Urine Bilirubin Urine Urobilinogen Ur Leukocyte Esterase Urine RBC Urine WBC Ur Epithelial Cells Amorphous Sediment Urine Bacteria Blood Type O NEGATIVE Antibody Screen NEGATIVE Crossmatch See Detail LABORATORY INTERPRETATION: the CBC shows a white count in the 25,000 range suggestive of severe sepsis. Furthermore there is a moderate to severe anemia with a hemoglobin just over eight. Metabolic studies show a mild hyponatremia with the rest of the electrolytes within normal balance. BUN is elevated and is consistent with dehydration. The lactic acid level was elevated at 2.2. ED Assessment - Assessment General Assessment: CASE SUMMARY: the 72-year-old homeless male presents complaining to the emergency department of pain in the right lower extremity. He is confused and barely able to [place] unassisted. Is clinically dehydrated with oral mucosa being very dry. On physical examination he appears to have cellulitis of the right lower extremity and this was addressed with IV hydration with normal saline, ceftriaxone 2 g IV, and vancomycin 1 g IV. My plan was to admit the patient with a diagnosis of sepsis for further evaluation and treatment as indicated. I had not been able to reach Dr. Urbina by the end of my shift and the case was passed on to my relieving physician, DR ALEXANDER [facility] [id number] SEPSIS: NOT PNEUMONIA BASED ON EXAM AND ALTERNATE SOURCE OF INFECTION IN THE RT LEG REGION. LOW RISK FOR UTI BASED ON UA SHOWING ONLY FEW BACTERIA AND ONLY 6-10 WBC'S. ED Septic Shock - . Is Septic Shock (SBP<90, OR Lactate>4 mmol\L) present?: No - <6hrs of presentation: Vital Signs: Vital Signs - 8 hr 11/27/17 16:15 Temp 98.8 F HR 107 RR 22 BP 144/59 O2 Sat % 96 ED Reassessment (Disposition) - Reassessment Reassessment Condition:: Improved - Diagnosis Diagnosis:: CELLULITIS RT LOWER EXGREMITY SEPSIS WITHOUT SHOCK - Patient Disposition Discharge/Transfer:: Acute Care w/in this hosp Discussion with Medical Provider:: DR ALEXANDER Admitted to:: Med/Surg ED Discharge Plan - Patient Disposition Admit/Discharge/Transfer: Acute Care w/in this hosp
[2017-11-27] MEDS ORDERED: Sodium Chloride 0.9% 3,000 ML IV ONE (17:42)
[2017-11-27] MEDS ORDERED: cefTRIAXone 1 GM in Sodium Chloride 0.9% 50 ML IV ONE (17:46)
[2017-11-27 18:00] LABS: EOSINOPHILE ABSOLUTE 0.1 Th/cmm (0.1-0.4); HEMOGLOBIN 8.1 gm/dL (12-16); LYMPHOCYTE ABSOLUTE 0.6 Th/cmm (1.5-3.0); MANUAL DIFF REQUIRED? YES; MEAN CELL VOLUME 69.8 fl (80-99); MEAN CORPUSCULAR HEMOGLOBIN 21.7 pg (27.0-31.0); MEAN CORPUSCULAR HGB CONC 31.1 pg (28.0-36.0); MONOCYTE ABSOLUTE 1.2 Th/cmm (0.3-1.0); NEUTROPHILE ABSOLUTE 23.3 Th/cmm (1.8-8.0); RED BLOOD COUNT 3.74 Mil/cmm (3.80-5.80); RED CELL DISTRIBUTION WIDTH 17.4 % (11.5-20.0)
[2017-11-27 18:04] LABS: HEMATOCRIT 26.1 % (41.0-60); PLATELET COUNT 287 Th/cmm (150-400); WHITE BLOOD COUNT 25.2 Th/cmm (4.8-10.8)
[2017-11-27 18:16] LABS: ALB/GLOB RATIO 0.7 (1.0-1.8); ALKALINE PHOSPHATASE 143 U/L (34-104); ANION GAP 14.3 (7.0-16.0); BILIRUBIN,TOTAL 0.7 mg/dL (0.3-1.0); BUN - UREA NITROGEN 26 mg/dL (7-25); CALCIUM SERUM 8.4 mg/dL (8.6-10.3); CARBON DIOXIDE 19.4 mEq/L (21.0-31.0); CHLORIDE 102 mEq/L (98-107); CREATININE - SERUM 1.1 mg/dL (0.7-1.3); GLUCOSE 231 mg/dL (70-105); POTASSIUM SERUM 3.7 mEq/L (3.5-5.1); SGOT 51 U/L (13-39); SGPT/ALT 25 U/L (7-52); SODIUM SERUM 132 mEq/L (136-145); TOTAL PROTEIN,SERUM 7.1 gm/dL (6.0-8.3)
[2017-11-27 18:26] LABS: ANISOCYTOSIS 1+; BAND NEUTROPHILE 8 % (0-10); HYPOCHROMIA 2+; LYMPHOCYTE 1 % (20-50); METAMYELOCYTE 1 % (0-0); MONOCYTE 7 % (2-10); NEUTROPHILS 83 % (40-80); PLATELET ESTIMATE ADEQUATE (NORMAL)
[2017-11-27] MEDS ORDERED: Acetaminophen 500 MG TAB PO PRN (21:26)
[2017-11-27] MEDS: Sodium Chloride 0.9% 1,000 ML IV SCH (21:59)
[2017-11-27 22:03] LABS: URINE MICROSCOPIC INDICATED? YES; URINE SOURCE RANDOM
[2017-11-27 22:18] LABS: URINE BILIRUBIN SMALL (NEGATIVE); URINE CLARITY SLIGHTLY HAZY (CLEAR); URINE COLOR DARK YELLOW; URINE GLUCOSE (UA) 100 mg/dL (NEGATIVE); URINE KETONE NEGATIVE (NEGATIVE)
[2017-11-27 22:19] LABS: URINE BLOOD MODERATE (NEGATIVE); URINE NITRATE NEGATIVE (NEGATIVE); URINE PROTEIN 100 mg/dL (NEGATIVE)
[2017-11-27 22:20] LABS: URINE LEUKOCYTE ESTERASE TRACE (NEGATIVE)
[2017-11-27 22:24] LABS: URINE EPITHELIAL CELLS OCCASIONAL /lpf (FEW)
[2017-11-27 22:25] LABS: URINE AMORPHOUS SEDIMENT FEW URATES (NONE SEEN); URINE BACTERIA FEW /hpf (NONE SEEN)
[2017-11-28 00:04] VITALS: BP 117/66
[2017-11-28] MEDS ORDERED: Pneumococcal Vaccine 0.5 mL Vial IM ONE (00:20)
[2017-11-28] MEDS: Sodium Chloride 0.9% 1,000 ML IV SCH (06:35)
[2017-11-28 07:55] LABS: ALB/GLOB RATIO 0.7 (1.0-1.8); ALBUMIN 2.5 gm/dL (4.2-5.5); ALKALINE PHOSPHATASE 113 U/L (34-104); ANION GAP 10.3 (7.0-16.0); BILIRUBIN,TOTAL 0.6 mg/dL (0.3-1.0); BUN - UREA NITROGEN 20 mg/dL (7-25); CALCIUM SERUM 7.9 mg/dL (8.6-10.3); CARBON DIOXIDE 19.4 mEq/L (21.0-31.0); CHLORIDE 109 mEq/L (98-107); CREATININE - SERUM 0.8 mg/dL (0.7-1.3); GLUCOSE 213 mg/dL (70-105); POTASSIUM SERUM 3.7 mEq/L (3.5-5.1); SGOT 34 U/L (13-39); SGPT/ALT 19 U/L (7-52); SODIUM SERUM 135 mEq/L (136-145)
[2017-11-28 08:41] LABS: EOSINOPHILE ABSOLUTE 0.1 Th/cmm (0.1-0.4); LYMPHOCYTE ABSOLUTE 0.8 Th/cmm (1.5-3.0); MEAN CELL VOLUME 69.7 fl (80-99); MEAN CORPUSCULAR HEMOGLOBIN 21.8 pg (27.0-31.0); MEAN CORPUSCULAR HGB CONC 31.3 pg (28.0-36.0); MEAN PLATELET VOLUME 9.4 fl; MONOCYTE ABSOLUTE 0.8 Th/cmm (0.3-1.0); NEUTROPHILE ABSOLUTE 17.6 Th/cmm (1.8-8.0); PLATELET COUNT 257 Th/cmm (150-400); RED CELL DISTRIBUTION WIDTH 18.1 % (11.5-20.0)
[2017-11-28 08:47] LABS: HEMOGLOBIN 7.2 gm/dL (12-16); WHITE BLOOD COUNT 20.3 Th/cmm (4.8-10.8)
[2017-11-28] MEDS: Hydrocodone/APAP 5mg/325mg Tab PO PRN ×3 (09:48→23:54)
[2017-11-28 09:50] LABS: ESR SEDIMENTATION SED RATE 51 mm/hr (0-20)
--- NOTE | 2017-11-28 10:09 | Diagnostic Imaging Report ---
Portable chest x-ray HISTORY: Shortness of breath The heart is enlarged. Atherosclerotic calcification noted in the prominent aortic arch (does the patient have a history of hypertension?). Accentuation of the interstitial lung markings. However, no acute focal processes are seen. IMPRESSION: 1. Accentuation of the interstitial lung markings. However, no focal processes are seen 2. Cardiomegaly with atherosclerotic vascular changes. Prominence of the aortic arch (does the patient of a history of hypertension?).
[2017-11-28] MEDS ORDERED: Probiotic Screen MC PRN (12:30)
[2017-11-28] MEDS: cefTRIAXone 1 GM in Sodium Chloride 0.9% 50 ML IV SCH (16:04)
--- NOTE | 2017-11-28 17:00 | History & Physical ---
ADMIT DATE: 11/28/2017 CHIEF COMPLAINT: The patient came in because of right leg pain. HISTORY OF PRESENT ILLNESS: This is a 72-year-old male who came in because of right leg pain. A few hours prior to admission, the patient felt ___ into his right leg. His right leg gradually became erythematous, warm, and quite tender to touch. He then proceeded to the Emergency Room. His white count was 25.2 with a temperature of 99.7 degrees. He was then admitted for further evaluation and management. He does have a history of low grade fever, but he had no nausea and vomiting and diarrhea. PAST MEDICAL HISTORY: Anemia of chronic disease. CURRENT MEDICATIONS: He is currently on ceftriaxone, hydrocodone, lactobacillus, vancomycin. ALLERGIES: No known drug allergies. SOCIAL HISTORY: No history of alcohol or tobacco use. FAMILY HISTORY: Noncontributory to present illness. REVIEW OF SYSTEMS: GENERAL: He did complain of some weakness. Appetite had been fair. He had low grade fever. HEENT: No mention of headaches, no dizziness. CARDIORESPIRATORY: No history of hypertension nor COPD. Denied any chest pain, palpitations, diaphoresis, cough, no shortness of breath. GASTROINTESTINAL: No nausea, vomiting, abdominal pain, or cramping, hematemesis, melena, hematochezia, no diarrhea. HEMATOLOGIC: He has anemia of chronic disease. GENITOURINARY: No history of kidney failure. ENDOCRINE: No history of diabetes, no thyroid abnormalities. NEUROPSYCHIATRIC: No syncopal episode nor seizure activity. PHYSICAL EXAMINATION: GENERAL: The patient is awake, verbal. Complaining of pain involving the right leg. VITAL SIGNS: His temperature is over 99.7 degrees, pulse 64, blood pressure 112/52. SKIN: Good turgor, warm, no rash, no jaundice appreciated. HEENT: Head: Normocephalic, atraumatic. EYES: Extraocular muscles intact. Pupils equal, round, reactive to light and accommodates. Anicteric sclerae. Pale conjunctivae. Nose: Midline nasal septum. Mouth: Moist mucosa with adequate dentition. NECK: Supple, no adenopathy, no thyromegaly, no bruits. Trachea palpated in the midline. CHEST AND CVS: S1, S2. No rub, murmur, no gallop appreciated. Point of maximal impulse fifth intercostal space, left midclavicular line. No abdominal or femoral bruits appreciated. LUNGS: Equal expansion. No use of accessory muscles. No supraclavicular retractions. Decreased breath sounds but clear to auscultation without any wheeze. ABDOMEN: Flat, soft. Positive for bowel sounds. No bruits either diastolic or systolic. RECTAL: The patient refused. GENITOURINARY: The patient also refused. MUSCULOSKELETAL: No effusions present in his joints, unable to access right lower extremity due to pain. EXTREMITIES: Presence of erythema, edema, warmth, and tenderness on palpation of his right lower extremity, there is no evidence of any edema. No cyanosis or clubbing of the left lower extremity. NEURO EXAM: The patient is alert, verbal, motor is 5/5. Cranial nerves 2-12 intact. Sensory intact. LABORATORY DATA: Labs did reveal white count of 20.3, hemoglobin 7.2, hematocrit 23, platelets of 257. Sodium 135, potassium 3.7, chloride 109, CO2 is 19, BUN 20, creatinine 0.8, glucose 213, calcium 7.9, magnesium 2, albumin 2.5. Chest x-ray, no focal process. IMPRESSION: 1. Acute right lower extremity cellulitis with possible abscess. 2. Anemia of chronic disease. PLAN: 1. Continue Rocephin. 2. Also vancomycin. 3. Follow up navarro culture. 4. ID consult. 5. CT scan of the right leg for possible abscess. 6. Antipyretics. 7. Consider surgical consult for I and D if confirm presence of abscess, right leg. [facility]# [id number]
[2017-11-29] MEDS: Sodium Chloride 0.9% 1,000 ML IV SCH ×2 (00:46→11:39)
[2017-11-29] MEDS: Hydrocodone/APAP 5mg/325mg Tab PO PRN ×3 (03:57→18:14)
[2017-11-29 06:13] LABS: % BASOPHILS 0.6 % (0.0-2.0); % EOSINOPHILS 2.7 % (0.0-5.0); % LYMPHOCYTES 6.6 % (20.0-50.0); % MONOCYTES 5.6 % (2.0-10.0); % NEUTROPHILS 84.5 % (40.0-80.0); BASOPHILE ABSOLUTE 0.1 Th/cumm (0-0.2); EOSINOPHILE ABSOLUTE 0.4 Th/cmm (0.1-0.4); HEMATOCRIT 25.1 % (41.0-60); LYMPHOCYTE ABSOLUTE 0.9 Th/cmm (1.5-3.0); MEAN CELL VOLUME 72.1 fl (80-99); MEAN CORPUSCULAR HEMOGLOBIN 22.3 pg (27.0-31.0); MEAN PLATELET VOLUME 9.3 fl; MONOCYTE ABSOLUTE 0.7 Th/cmm (0.3-1.0); NEUTROPHILE ABSOLUTE 11.2 Th/cmm (1.8-8.0); PLATELET COUNT 227 Th/cmm (150-400); RED BLOOD COUNT 3.48 Mil/cmm (3.80-5.80); RED CELL DISTRIBUTION WIDTH 18.9 % (11.5-20.0)
[2017-11-29 06:33] LABS: ALB/GLOB RATIO 0.6 (1.0-1.8); ALBUMIN 2.2 gm/dL (4.2-5.5); ALKALINE PHOSPHATASE 117 U/L (34-104); BILIRUBIN,TOTAL 0.5 mg/dL (0.3-1.0); BUN - UREA NITROGEN 22 mg/dL (7-25); CALCIUM SERUM 7.7 mg/dL (8.6-10.3); CHLORIDE 109 mEq/L (98-107); CREATININE - SERUM 0.7 mg/dL (0.7-1.3); GLUCOSE 185 mg/dL (70-105); MAGNESIUM 1.7 mg/dL (1.9-2.7); SGOT 40 U/L (13-39); SGPT/ALT 21 U/L (7-52); SODIUM SERUM 135 mEq/L (136-145); TOTAL PROTEIN,SERUM 5.8 gm/dL (6.0-8.3)
[2017-11-29 07:02] LABS: HEMOGLOBIN 7.8 gm/dL (12-16); WHITE BLOOD COUNT 13.3 Th/cmm (4.8-10.8)
[2017-11-29] MEDS: Lactobacillus Rhamnosus GG 15 Billion CFU CAP.SPRINK PO SCH (08:56)
--- NOTE | 2017-11-29 11:19 | Diagnostic Imaging Report ---
CT right lower extremity without IV contrast History: pain rule out abscess Comparison: None Technique/procedure: Axial images were obtained from the distal one third of the right femoral shaft to the ankle without IV contrast. Multiplanar reconstructions were made. Total DLP 517, CTD 8.5 Findings: Exam is limited due to lack of IV contrast. Mild degenerative changes of the knee joint is noted. No evidence of acute fracture or dislocation. Distal Achilles spurring is noted. Mild degenerative changes of the hindfoot and midfoot are noted. Nonspecific 3 mm density along possibly calcification seen adjacent to the distal lateral tibia tissue. There is extensive subcutaneous edema with generalized fluid noted. There appears to be small soft tissue defects along the anterior medial aspect of the tibial soft tissues. Diffuse atherosclerotic vascular disease is noted. Atherosclerotic vascular disease. Mild to moderate degenerative changes. No acute fracture identified. No x-ray evidence of osteomyelitis. IMPRESSION: Limited exam due to lack of IV contrast. Extensive subcutaneous edema is seen throughout the lower extremity extending to the deeper fascial planes. There is also fluid seen throughout these regions. Assessment for drainable fluid collection is limited due to lack of IV contrast administration, however, no gross drainable fluid collection is identified. Consider short-term assessment with CT or MRI with IV contrast Soft tissue irregularities and small areas of defect/probable small serrations along the anterior medial tibial region. No osseous erosions identified. Atherosclerotic vascular disease.
[2017-11-29] MEDS: Vancomycin HCl 1.5 GM in Sodium Chloride 0.9% 500 ML IV SCH (11:39)
--- NOTE | 2017-11-29 16:10 | Consultation ---
Consult Note - Consult Note Service Date: 11/29/17 Referring Physician: Rose Dover Consult Note: PHYSICIAN Consultation Note: Date of Admission: 11/27/17 Purpose of Consultation: Sepsis and right leg cellulitis. Chief Complaint: Patient HENOK CORRAL was admitted to [facility] Telemetry with RIGHT LOWER LEG CELLULITIS,HYPOXEMIA. History of Present Illness: Patient is 72-year-old male with a past medical history of hypertension, anemia of chronic disease, admitted for right leg pain. He developed right leg painful swelling with redness. On initial evaluation his temperature was 99.7 F and WBC count was 25,200. He was diagnosed with sepsis and right leg cellulitis. Sepsis workup was performed and he was started on vancomycin and Rocephin. Infectious disease consultation was called for further antibiotic management. Past Medical History: Anemia of chronic disease. Hypertension. Some kind of Cancer. Diagnoses SEPSIS, UNSPECIFIED ORGANISM (11/27/17) ANEMIA, UNSPECIFIED (11/27/17) CELLULITIS OF RIGHT LOWER LIMB (11/27/17) Allergies Allergy/AdvReac Type Severity Reaction Status Date / Time No Known Allergies Allergy Verified 09/18/17 21:51 Vital Signs Temp 98.4 F 11/29/17 15:45 Pulse 75 11/29/17 15:45 Resp 19 11/29/17 15:45 BP 150/86 11/29/17 15:45 Pulse Ox 93 11/29/17 15:45 Intake & Output 11/28/17 11/29/17 11/29/17 18:59 06:59 18:59 Intake Total 1850 1650 950 Balance 1850 1650 950 Weight (lbs) 72.575 kg 76.158 kg Intake: Intake, IV Amount 1000 850 950 Sodium Chloride 0.9% 1, 1000 550 450 000 ml @ 100 mls/hr IV . Q10H [facility] Rx#:[id number] Vancomycin HCl 1 gm In 250 Sodium Chloride 0.9% 250 ml @ 165 mls/hr IV Q24H [facility] Rx#:[id number] Vancomycin HCl 1.5 gm In 500 Sodium Chloride 0.9% 500 ml @ 250 mls/hr IV Q24HR@ 0900 [facility] Rx#:[id number] cefTRIAXone 1 gm In 50 Sodium Chloride 0.9% 50 ml @ 100 mls/hr IV Q24HR [facility] Rx#:[id number] Oral 600 800 Blood Product 250 Other: # Voids 3 3 # Bowel Movements 0 0 Stool Characteristics Soft Laboratory Results - last 24 hr 11/27/17 11/29/17 11/29/17 22:09 05:40 05:40 WBC 13.3 H D RBC 3.48 L Hgb 7.8 L* Hct 25.1 L MCV 72.1 L MCH 22.3 L MCHC Differential 31.0 RDW 18.9 Plt Count 227 MPV 9.3 Neutrophils % 84.5 H Lymphocytes % 6.6 L Monocytes % 5.6 Eosinophils % 2.7 Basophils % 0.6 Sodium 135 L Potassium 4.0 Chloride 109 H Carbon Dioxide 21.0 Anion Gap 9.0 BUN 22 Creatinine 0.7 Est GFR ( Amer) TNP Est GFR (Non-Af Amer) TNP BUN/Creatinine Ratio 31.4 Glucose 185 H POC Glucose 153 H Calcium 7.7 L Magnesium 1.7 L Total Bilirubin 0.5 AST 40 H ALT 21 Alkaline Phosphatase 117 H Total Protein 5.8 L Albumin 2.2 L Globulin 3.6 Albumin/Globulin Ratio 0.6 L Stool Occult Blood 11/29/17 07:40 WBC RBC Hgb Hct MCV MCH MCHC Differential RDW Plt Count MPV Neutrophils % Lymphocytes % Monocytes % Eosinophils % Basophils % Sodium Potassium Chloride Carbon Dioxide Anion Gap BUN Creatinine Est GFR ( Amer) Est GFR (Non-Af Amer) BUN/Creatinine Ratio Glucose POC Glucose Calcium Magnesium Total Bilirubin AST ALT Alkaline Phosphatase Total Protein Albumin Globulin Albumin/Globulin Ratio Stool Occult Blood NEGATIVE Home Medication Medication Instructions Recorded Type NK [No Home Meds] 11/27/17 History Current Medications Generic Name Dose Route Start Last Admin Trade Name Aneudy PRN Reason Stop Dose Admin Acetaminophen 500 mg 11/27/17 21:26 11/27/17 21:57 Tylenol Extra Strength PO 01/26/18 21:25 500 mg Q4HR PRN Administration Pain (Mild) Acetaminophen 650 mg 11/28/17 16:18 Tylenol PO 01/27/18 16:17 Q6H PRN Fever > 101 Acetaminophen/Hydrocodone Bitart 1 tab 11/28/17 08:59 11/29/17 08:56 [place] 5mg/325mg PO 01/27/18 08:58 1 tab Q4H PRN Administration Pain (Moderate) Ceftriaxone Sodium 1 gm/ 50 mls @ 100 mls/hr 11/28/17 16:00 11/28/17 19:46 Sodium Chloride IV 01/27/18 15:59 Infused Q24HR [facility] Infusion Sodium Chloride 1,000 mls @ 100 mls/hr 11/27/17 21:26 11/29/17 11:39 Nacl 0.9% IV 01/26/18 21:25 100 mls/hr .Q10H [facility] Administration Vancomycin HCl 1 gm/ Sodium 250 mls @ 165 mls/hr 11/28/17 18:00 11/28/17 19: 47 Chloride IV 01/27/18 17:59 Infused Q24H [facility] Infusion Vancomycin HCl 1.5 gm/ Sodium 500 mls @ 250 mls/hr 11/29/17 10:00 11/29/17 13 :40 Chloride IV 01/28/18 09:59 Infused Q24HR@0900 [facility] Infusion Lactobacillus Rhamnosus 1 each 11/29/17 09:00 11/29/17 08:56 Culturelle 15b PO 01/28/18 08:59 1 each DAILY [facility] Administration Lorazepam 1 mg 11/29/17 09:21 Ativan IVP 01/28/18 09:20 Q4HR PRN Agitation Protocol Miscellaneous 1 ea 11/28/17 12:30 Probiotic Screen MC 01/27/18 12:29 PRN PRN PROTOCOL Review of Systems: A 12 point ROS was reviewed with the pertinent positive and negatives noted in the HPI. Gen.: Patient denies any fever, chills, generalized weakness. HEENT: Patient denies diplopia peripheral vessel for congestion. RS: Patient denies cough, shortness of breath, wheezing. CVS: Patient denies any chest pain, palpitation, leg swelling. GI: Patient initially nausea, vomiting, diarrhea, melena, denies any abdominal pain. : Patient denies any dysuria, hematuria, urinary retention. Musculoskeletal: Patient has right leg pain with swelling and redness with draining wounds. 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 Skin: Patient redness with ulcer formation in the right leg Social History Homeless. And normal as is to follow-up with Has history of alcohol abuse. Denies any smoking, drug abuse. Family Medical History Coronary artery disease, cancer. Physical Exam: General: Comfortable, anxious, nontoxic looking. Cachectic. Vital signs: Temperature 98.4 pulse 75 respirations 19 and blood [id number]. HEENT: Head: Normocephalic atraumatic. Oral cavity: Moist, pink tongue. Eyes: Pallor is present. No icterus. Pupil PERRLA. EOMI. Neck: Supple, no JVD, no use of accessory neck muscles. Positive. No thyromegaly. Cardio: S1 and S2 within normal limits regular rhythm no murmur no gallop. Respiratory: Vesicular breath sounds, no crackles, wheezes. Abdominal: Soft, nontender, nondistended bowel sounds present. Genital/Urinary: Deferred. Extremities: No sinus no clubbing no edema. Patient has right leg swelling with ulcer formation. Very tender to touch. Neurological: Alert, awake, oriented 3. Assessment: 1. Leukocytosis suspect sepsis. 2. Right leg cellulitis, complicated. Suspect streptococcal versus staph MRSA infection. 3. Anemia. Plan: Will continue vancomycin and change Rocephin to Zosyn. Follow-up wound culture and blood cultures. Thank you, Dr. Dover for involving me in taking care of this patient. Lance, Nelson Inman M.D. [id number]
[2017-11-29] MEDS: cefTRIAXone 1 GM in Sodium Chloride 0.9% 50 ML IV SCH (16:27)
[2017-11-30] MEDS: Hydrocodone/APAP 5mg/325mg Tab PO PRN ×2 (01:31→05:27)
[2017-11-30] MEDS: Sodium Chloride 0.9% 1,000 ML IV SCH (06:50)
[2017-11-30 07:46] LABS: % BASOPHILS 0.4 % (0.0-2.0); % EOSINOPHILS 5.1 % (0.0-5.0); % LYMPHOCYTES 9.9 % (20.0-50.0); % MONOCYTES 6.6 % (2.0-10.0); EOSINOPHILE ABSOLUTE 0.6 Th/cmm (0.1-0.4); HEMATOCRIT 25.7 % (41.0-60); HEMOGLOBIN 8.3 gm/dL (12-16); LYMPHOCYTE ABSOLUTE 1.2 Th/cmm (1.5-3.0); MEAN CELL VOLUME 71.7 fl (80-99); MEAN CORPUSCULAR HEMOGLOBIN 23.1 pg (27.0-31.0); MEAN CORPUSCULAR HGB CONC 32.3 pg (28.0-36.0); MEAN PLATELET VOLUME 8.6 fl; MONOCYTE ABSOLUTE 0.8 Th/cmm (0.3-1.0); NEUTROPHILE ABSOLUTE 9.2 Th/cmm (1.8-8.0); PLATELET COUNT 251 Th/cmm (150-400); RED BLOOD COUNT 3.58 Mil/cmm (3.80-5.80); WHITE BLOOD COUNT 11.8 Th/cmm (4.8-10.8)
[2017-11-30 08:01] LABS: ANION GAP 7.3 (7.0-16.0); BUN - UREA NITROGEN 13 mg/dL (7-25); CALCIUM SERUM 8.1 mg/dL (8.6-10.3); CARBON DIOXIDE 24.9 mEq/L (21.0-31.0); CHLORIDE 104 mEq/L (98-107); CREATININE - SERUM 0.7 mg/dL (0.7-1.3); GLUCOSE 124 mg/dL (70-105); POTASSIUM SERUM 4.2 mEq/L (3.5-5.1); SODIUM SERUM 132 mEq/L (136-145)
[2017-11-30] MEDS: Lactobacillus Rhamnosus GG 15 Billion CFU CAP.SPRINK PO SCH (08:38)
[2017-11-30] MEDS: Venelex 60gm Tube TP SCH (08:46)
[2017-11-30] MEDS: Vancomycin HCl 1.5 GM in Sodium Chloride 0.9% 500 ML IV SCH ×2 (09:21→21:59)
--- NOTE | 2017-11-30 10:52 | History & Physical ---
ADMIT DATE: 11/30/2017 HISTORY OF PRESENT ILLNESS: Staff was spoken to. The patient is interviewed. The patient is requested to be seen by Dr. Dover because of his psychosis and confusion. The patient is not able to provide much of any information. The patient's brother who happened to be there by the bedside has been able to give me some information. The patient's brother has been mentioned that the patient has a long history of alcohol and drug problem and particularly methamphetamine. The patient has been also reported to have couple of sons and he is not very sure whether they keep in touch with him or not. The patient at this time is very confused and not able to provide much of information and has been trying even if he have mittens he has been trying to pull the IV lines out. PAST PSYCHIATRIC HISTORY: The patient is reported to have been seen by the psychiatrist in the past. MEDICAL HISTORY: The patient is reported to have cellulitis of the lower extremities and is being treated for it. SUBSTANCE ABUSE HISTORY: The patient is reported to have a history of abusing alcohol and methamphetamine. SOCIAL HISTORY: The patient has 2 children and details about where he is going to be staying is not known. Currently, he is homeless. MENTAL EXAMINATION: The patient is a 72-year-old, looking his stated age, disheveled, superficially cooperative. Eye contact is poor. Mood is noted to be irritable. Affect is constricted. The patient is responding to internal stimuli. Insight and judgment at this time are noted to be very much impaired. Impulse control seems to be limited. The patient's brother has been mentioning that this is not the state that he sees him and he does much better when he is ill, but stable psychologically. The patient at this time on haloperidol 1 mg q.2 hours, which I am going to be making it to increase it to 2 mg q.12h. and the patient is going to be closely monitored. I encouraged him to participate in the groups and verbalize the concerns. The patient is alert and awake, but not able to do the cognitive testing because the patient is very confused. DIAGNOSTIC IMPRESSION: 1a. Psychosis, not otherwise specified. 1b: Schizophrenia, chronic paranoid type by history. PLAN: To closely monitor the patient. I encouraged the patient to verbalize the concerns rather than to act out. [facility]# [id number]
--- NOTE | 2017-12-01 01:43 | Infectious Disease Prog Note ---
Infectious Disease Subjective - Review of Systems Service Date: 11/30/17 Subjective: No change, there is no fever. Infectious Disease Objective - Results Result Diagrams: 11/30/17 07:45 11/30/17 07:45 Recent Labs: Laboratory Last Values WBC 11.8 Th/cmm (4.8-10.8) H 11/30/17 07:45 RBC 3.58 Mil/cmm (3.80-5.80) L 11/30/17 07:45 Hgb 8.3 gm/dL (12-16) L 11/30/17 07:45 Hct 25.7 % (41.0-60) L 11/30/17 07:45 MCV 71.7 fl (80-99) L 11/30/17 07:45 MCH 23.1 pg (27.0-31.0) L 11/30/17 07:45 MCHC Differential 32.3 pg (28.0-36.0) 11/30/17 07:45 RDW 20.0 % (11.5-20.0) 11/30/17 07:45 Plt Count 251 Th/cmm (150-400) 11/30/17 07:45 MPV 8.6 fl 11/30/17 07:45 Neutrophils % 78.0 % (40.0-80.0) 11/30/17 07:45 Band Neutrophils % 8 % (0-10) 11/27/17 16:45 Lymphocytes % 9.9 % (20.0-50.0) L 11/30/17 07:45 Monocytes % 6.6 % (2.0-10.0) 11/30/17 07:45 Eosinophils % 5.1 % (0.0-5.0) H 11/30/17 07:45 Basophils % 0.4 % (0.0-2.0) 11/30/17 07:45 Neutrophils (Manual) 83 % (40-80) H 11/27/17 16:45 Lymphocytes 1 % (20-50) L 11/27/17 16:45 Monocytes 7 % (2-10) 11/27/17 16:45 Metamyelocytes 1 % (0-0) H 11/27/17 16:45 Hypochromia 2+ 11/27/17 16:45 Platelet Estimate ADEQUATE (NORMAL) 11/27/17 16:45 Anisocytosis 1+ 11/27/17 16:45 Microcytosis 3+ 11/27/17 16:45 RBC Morph Micro Appear ABNORMAL (NORMAL) 11/27/17 16:45 ESR 51 mm/hr (0-20) H 11/28/17 05:45 Sodium 132 mEq/L (136-145) L 11/30/17 07:45 Potassium 4.2 mEq/L (3.5-5.1) 11/30/17 07:45 Chloride 104 mEq/L (98-107) 11/30/17 07:45 Carbon Dioxide 24.9 mEq/L (21.0-31.0) 11/30/17 07:45 Anion Gap 7.3 (7.0-16.0) 11/30/17 07:45 BUN 13 mg/dL (7-25) 11/30/17 07:45 Creatinine 0.7 mg/dL (0.7-1.3) 11/30/17 07:45 Est GFR ( Amer) TNP 11/30/17 07:45 Est GFR (Non-Af Amer) TNP 11/30/17 07:45 BUN/Creatinine Ratio 18.6 11/30/17 07:45 Glucose 124 mg/dL (70-105) H 11/30/17 07:45 POC Glucose 153 MG/DL (70 - 105) H 11/27/17 22:09 Hemoglobin A1c % 8.0 % (4.0-6.0) H 11/27/17 16:45 Whole Bld Lactic Acid 1.23 mmol/L (0.60-1.99) 11/27/17 18:47 Calcium 8.1 mg/dL (8.6-10.3) L 11/30/17 07:45 Magnesium 1.7 mg/dL (1.9-2.7) L 11/29/17 05:40 Total Bilirubin 0.5 mg/dL (0.3-1.0) 11/29/17 05:40 AST 40 U/L (13-39) H 11/29/17 05:40 ALT 21 U/L (7-52) 11/29/17 05:40 Alkaline Phosphatase 117 U/L (34-104) H 11/29/17 05:40 C-Reactive Protein 22.1 mg/dL (0.0-0.9) H 11/28/17 05:45 Total Protein 5.8 gm/dL (6.0-8.3) L 11/29/17 05:40 Albumin 2.2 gm/dL (4.2-5.5) L 11/29/17 05:40 Globulin 3.6 gm/dL 11/29/17 05:40 Albumin/Globulin Ratio 0.6 (1.0-1.8) L 11/29/17 05:40 Triglycerides 52 mg/dL (<150) 11/28/17 05:45 Cholesterol 63 mg/dL (<200) 11/28/17 05:45 LDL Cholesterol Direct 34 mg/dL (75-193) L 11/28/17 05:45 HDL Cholesterol 22 mg/dL (23-92) L 11/28/17 05:45 TSH 1.44 uIU/ml (0.34-5.60) 11/28/17 05:45 Urine Source RANDOM 11/27/17 21:15 Urine Color DARK YELLOW 11/27/17 21:15 Urine Clarity SLIGHTLY HAZY (CLEAR) 11/27/17 21:15 Urine pH 6.0 (4.6 - 8.0) 11/27/17 21:15 Ur Specific Meherrin 1.020 (1.005-1.030) 11/27/17 21:15 Urine Protein 100 mg/dL (NEGATIVE) H 11/27/17 21:15 Urine Glucose (UA) 100 mg/dL (NEGATIVE) H 11/27/17 21:15 Urine Ketones NEGATIVE mg/dL (NEGATIVE) 11/27/17 21:15 Urine Blood MODERATE (NEGATIVE) H 11/27/17 21:15 Urine Nitrate NEGATIVE (NEGATIVE) 11/27/17 21:15 Urine Bilirubin SMALL (NEGATIVE) H 11/27/17 21:15 Urine Urobilinogen 2.0 E.U./dL (0.2 - 1.0) 11/27/17 21:15 Ur Leukocyte Esterase TRACE (NEGATIVE) H 11/27/17 21:15 Urine RBC 2-5 /hpf (0-5) H 11/27/17 21:15 Urine WBC 6-10 /hpf (0-5) H 11/27/17 21:15 Ur Epithelial Cells OCCASIONAL /lpf (FEW) 01/13/18 21:15 Amorphous Sediment FEW URATES (NONE SEEN) 11/27/17 21:15 Urine Bacteria FEW /hpf (NONE SEEN) 11/27/17 21:15 Stool Occult Blood NEG (NEGATIVE) 11/29/17 15:27 Vancomycin Trough 7.2 ug/mL (10-20) L 11/30/17 07:45 Blood Type O NEGATIVE 11/28/17 09:15 Antibody Screen NEGATIVE 11/28/17 09:15 Crossmatch See Detail 11/28/17 09:15 - Physical Exam Vitals and I&O: Vital Signs Temp 98.6 F 11/30/17 16:00 Pulse 76 11/30/17 23:26 Resp 22 11/30/17 23:26 BP 151/63 11/30/17 16:00 Pulse Ox 97 11/30/17 23:26 Intake & Output 11/30/17 11/30/17 12/01/17 06:59 18:59 06:59 Intake Total 1850 100 Balance 1850 100 Weight (lbs) 76.249 kg Intake: Intake, IV Amount 1200 100 Piperacillin Sodium/ 200 100 Tazobact 4.5 gm In Sodium Chloride 0.9% 100 ml @ 100 mls/hr IV Q8HR [facility] Rx #:[id number] Sodium Chloride 0.9% 1, 1000 000 ml @ 100 mls/hr IV . Q10H [facility] Rx#:[id number] Oral 650 Other: # Voids 4 # Bowel Movements 0 Active Medications: Current Medications Acetaminophen (Tylenol Extra Strength) 500 mg PO Q4HR PRN PRN Reason: Pain (Mild) Stop: 01/26/18 21:25 Last Admin: 11/27/17 21:57 Dose: 500 mg Acetaminophen (Tylenol) 650 mg PO Q6H PRN PRN Reason: Fever > 101 Stop: 01/27/18 16:17 Acetaminophen/Hydrocodone Bitart ([place] 5mg/325mg) 1 tab PO Q4H PRN PRN Reason: Pain (Moderate) Stop: 01/27/18 08:58 Last Admin: 11/30/17 05:27 Dose: 1 tab Quentin Oil/[place]olese Balsam/Trypsin (Venelex) 1 appl TP DAILY [facility] Stop: 01/29/18 08:59 Last Admin: 11/30/17 08:46 Dose: 1 appl Haloperidol (Haldol) 2 mg PO Q12HR [facility] PRN Reason: Protocol Stop: 01/28/18 22:14 Last Admin: 11/30/17 21:01 Dose: 2 mg Sodium Chloride (Nacl 0.9%) 1,000 mls @ 100 mls/hr IV .Q10H [facility] Stop: 01/26/18 21:25 Last Admin: 11/30/17 06:50 Dose: 100 mls/hr Piperacillin Sod/Tazobactam (Sod 4.5 gm/ Sodium Chloride) 100 mls @ 100 mls/hr IV Q8HR [facility] Stop: 01/28/18 20:59 Last Admin: 11/30/17 20:46 Dose: 100 mls/hr Vancomycin HCl 1.5 gm/ Sodium (Chloride) 500 mls @ 250 mls/hr IV Q12H [facility] Stop: 01/29/18 20:59 Last Admin: 11/30/17 21:59 Dose: 250 mls/hr Lactobacillus Rhamnosus (Culturelle 15b) 1 each PO DAILY [facility] Stop: 01/28/18 08:59 Last Admin: 11/30/17 08:38 Dose: 1 each Lorazepam (Ativan) 1 mg IVP Q4HR PRN; Protocol PRN Reason: Agitation Stop: 01/28/18 09:20 Last Admin: 11/30/17 22:05 Dose: 1 mg Miscellaneous (Probiotic Screen) 1 ea PRN PRN PRN Reason: PROTOCOL Stop: 01/27/18 12:29 Miscellaneous (Vancomycin Iv Per Pharmacy) 1 ea DAILY [facility] Stop: 01/29/18 08:59 General: no acute distress, well developed, well nourished HEENT: atraumatic, normocephalic, PERRLA, EOMI Neck: supple, no thyromegaly, no lymphadenopathy Cardiovascular: S1S2, regular Lungs: clear to auscultation bilaterally, clear to percussion Abdomen: soft, no tender, no distended Extremities: other ( Patient has right leg swelling with ulcer formation. Very tender to touch. ), no cyanosis, no clubbing, no edema Neurological: awake, alert, oriented Skin: intact Infectious Disease Assmt/Plan - Problem List Patient Problems: All Active Problems UNSTEADY GAIT WITH FALL AND R FOOT PAIN (Acute) Alteration consciousness (Acute) R40.4 Chronic obstructive pulmonary disease with acute exacerbation (Acute) J44.1 GENERALIZED WEAKNESS POST FALL (Acute) Pneumonia (Acute) J18.9 - Assessment Assessment: 1. Leukocytosis suspect sepsis. 2. Right leg cellulitis, complicated. Suspect streptococcal versus staph MRSA infection. 3. Anemia. - Plan Plan: Will continue vancomycin and change Rocephin to Zosyn. Follow-up wound culture and blood cultures. Nutritional Asmnt/Malnutr-PDOC - Dietary Evaluation Malnutrition Findings (Please click <Entered> for more info): Nutritional Asmnt/Malnutrition Start: 11/29/17 16: 28 Text: Status: Complete Freq: Document 11/29/17 16:29 LCHENG (Rec: 11/29/17 16:43 [email or web address] Nutritional Asmnt/Malnutrition Patient General Information Nutritional Screening High Risk Diagnosis right lower leg cellulitis, hypoxemia Pertinent Medical Hx/Surgical Hx HTN, chronic anemia, some kind of cancer Subjective Information Consult received for wounds. Pt seen lying in bed at time of visit, awake. Pt reported not having much appetite, but consumed 100% of breakfast this morning. Pt was somewhat confused, not able to get more nutrition hx. Per notes, PO intake 75% x 3 meals on 11/28. Elevated blood glucose noted. Spoke with RN, pt had a lot chocolates brought by his brother, right now no new diet order from DM. Current Diet Order/ Nutrition Support mech soft chopped Pertinent Medications culturelle, nacl 0.9%, vancomycin Pertinent Labs 11/29 na 135, K 4.0, CL 109, BUN 22, Cr 0.7, Glucose 185, Ca 7.7, Mg 1.7, AST 40, ALT 21 , Alb 2.2 11/28 Glucose 213 11/27 A1c 8.0, POC 153 Nutritional Hx/Data Height 1.75 m Height (Calculated Centimeters) 175.3 Current Weight (lbs) 76.158 kg Weight (Calculated Kilograms) 76.2 Weight (Calculated Grams) 98724.2 [place] Body Weight 160 % [place] Body Weight 105 Body Mass Index (BMI) 24.7 Weight Status Approriate GI Symptoms GI Symptoms None Last BM none Difficult in: None Skin Integrity/Comment: CELLULITIS on right below knee skin tear to left knee, puncture wound to right lower leg Estimated Nutritional Goals BEE in Kcals: Using Current wt Calories/Kcals/Kg 25-30 Kcals Calculated 6451-2549 Protein: Using Current wt Protein g/k-1.2 Protein Calculated 76-91 Fluid: ml [id number] Nutritional Problem 2. Problem Problem increased nutrition needs ( protein) Etiology increased metabolic demand for wound healing Signs/Symptoms: cellulitis, skin tear, puncture wound 1. Problem Problem altered nutrition related lab values Etiology endocrine dysfunction Signs/Symptoms: A1c 8.0, Glucose 185-213, POC 153 Malnutrition Alert Protein-Calorie Malnutrition N/A Is there a minimum of two criteria No selected? Query Text:Check all the applicable criteria. A minimum of two criteria are recommended for diagnosis of either severe or non-severe malnutrition. Intervention/Recommendation Comments 1. Continue with current diet order. Keep monitoring blood glucose. If pt has hyperglycemia, will consider modify diet to [facility]. 2. Monitor PO intake, wt, labs and skin integrity 3. F/U as high risk in 2-3 days, 12/01-12/02 Expected Outcomes/Goals Expected Outcomes/Goals 1. PO intake to meet at least 75% of nutritional needs. 2. Wt stability, skin to improve, labs to approach WNL.
[2017-12-01 08:01] LABS: % EOSINOPHILS 3.3 % (0.0-5.0); % LYMPHOCYTES 7.5 % (20.0-50.0); % NEUTROPHILS 80.2 % (40.0-80.0); BASOPHILE ABSOLUTE 0.2 Th/cumm (0-0.2); EOSINOPHILE ABSOLUTE 0.4 Th/cmm (0.1-0.4); HEMATOCRIT 26.7 % (41.0-60); HEMOGLOBIN 8.4 gm/dL (12-16); LYMPHOCYTE ABSOLUTE 0.8 Th/cmm (1.5-3.0); MEAN CELL VOLUME 70.7 fl (80-99); MEAN CORPUSCULAR HEMOGLOBIN 22.1 pg (27.0-31.0); MEAN CORPUSCULAR HGB CONC 31.3 pg (28.0-36.0); MEAN PLATELET VOLUME 8.3 fl; MONOCYTE ABSOLUTE 0.8 Th/cmm (0.3-1.0); NEUTROPHILE ABSOLUTE 8.8 Th/cmm (1.8-8.0); PLATELET COUNT 294 Th/cmm (150-400); RED BLOOD COUNT 3.77 Mil/cmm (3.80-5.80)
[2017-12-01 08:30] LABS: ANION GAP 8.3 (7.0-16.0); BUN - UREA NITROGEN 10 mg/dL (7-25); CARBON DIOXIDE 23.5 mEq/L (21.0-31.0); CHLORIDE 105 mEq/L (98-107); CREATININE - SERUM 0.7 mg/dL (0.7-1.3); GLUCOSE 127 mg/dL (70-105); MAGNESIUM 1.7 mg/dL (1.9-2.7); POTASSIUM SERUM 3.8 mEq/L (3.5-5.1); SODIUM SERUM 133 mEq/L (136-145)
[2017-12-01] MEDS: Lactobacillus Rhamnosus GG 15 Billion CFU CAP.SPRINK PO SCH (08:39)
[2017-12-01] MEDS: Ferrous Sulfate 325 MG TAB PO SCH ×2 (10:31→13:55)
[2017-12-01] MEDS: Vancomycin HCl 1.5 GM in Sodium Chloride 0.9% 500 ML IV SCH (10:45)
[2017-12-01] MEDS: Venelex 60gm Tube TP SCH (12:26)
--- NOTE | 2017-12-01 19:33 | Discharge Summary ---
DATE OF DISCHARGE: 12/01/2017 ADMITTING DIAGNOSES: 1. Right leg pain with acute right lower extremity cellulitis and drainage. 2. Anemia. 3. Clinical dehydration. 4. Hyponatremia. 5. Hyperglycemia. 6. Homelessness. 7. Possible psych disease. 8. Hypoxemia. 9. UTI. SECONDARY DIAGNOSES: Unknown. DISCHARGE DIAGNOSES: 1. Acute right lower extremity cellulitis with open wounds and edema, which appears to be improving. 2. Leukocytosis, improved. 3. Hyponatremia, stable. 4. Clinical dehydration, improved. 5. Anemia of chronic disease, stable. 6. Hypoxemia, resolved. 7. Urinary tract infection, stable. 8. Nonspecific psychosis-likely schizophrenia-followed by Psychiatry. CONSULTANTS: Dr. Escalante, Psychiatry and Nelson Inman M.D. for ID. MAJOR PROCEDURES: Right lower extremity CT scan showing limited exam due to lack of IV contrast. Extensive subcutaneous edema is seen throughout the lower extremities extending to the deeper fascial planes. There is also fluid seen throughout these regions. BRIEF HOSPITAL COURSE: The patient is a 72-year-old gentleman apparently homeless, who was transferred to the ER secondary to increased pain and swelling of his right lower extremity. On initial evaluation at the ER, the pain was noticeably red, warmth to touch and tender to palpation. The white count was 25.2 with a temperature of 99.7. He was admitted to the medical floor and placed on IV fluids, IV antibiotics and was pancultured. The patient was noted to be somewhat confused and at times agitated. Therefore, a psych consult was placed. His clinical proof did show improvement of his cellulitis with a white count of 20.3 by 11/28/2017 and 13.3 by 11/29/2017. His redness and swelling did also improve and a lower extremity CT scan was asked for given the extent of the cellulitis. Please refer to procedures. His cultures showed Staph aureus with many beta hemolytic strep A organisms, but official sensitivities are pending. He also had a UTI on initial UA, but the cultures did remain negative. Hemodynamically, he has remained stable and his agitation/psychosis has improved. As noted above, he is homeless and apparently does not follow with any PCP. CONDITION ON DISCHARGE: Stable. DISPOSITION: The patient was transferred to [facility] for further management and care where he will remain on p.o. antibiotics and will continue to follow his labs and wound culture results. JOSE: 12/01/2017 09:59 JOB# [id number] HECTOR
[2017-12-01] MEDS ORDERED: Clindamycin 300mg/50mL 300 MG/50 ML BAG IV SCH (21:00)
== END 2017-12-01 18:55 | DRG 871 ==
LOC: ER 16:03 → TELE 19:45
PROVIDERS: ADMIT Internal Medicine; ATTEND Internal Medicine
PROC: 30233N1 Transfusion of Nonautologous Red Blood Cells into Peripheral Vein, Percutaneous Approach (ICD-10-PCS; principal; 2017-11-29)
DX: A41.9 Sepsis, unspecified organism (principal); E43 Unspecified severe protein-calorie malnutrition; L03.115 Cellulitis of right lower limb; D63.8 Anemia in other chronic diseases classified elsewhere; N39.0 Urinary tract infection, site not specified; E86.0 Dehydration; F20.0 Paranoid schizophrenia; E87.1 Hypo-osmolality and hyponatremia; F29 Unspecified psychosis not due to a substance or known physiological condition; I10 Essential (primary) hypertension; S81.801A Unspecified open wound, right lower leg, initial encounter; B95.62 Methicillin resistant Staphylococcus aureus infection as the cause of diseases classified elsewhere; R09.02 Hypoxemia; B95.0 Streptococcus, group A, as the cause of diseases classified elsewhere; Z82.49 Family history of ischemic heart disease and other diseases of the circulatory system; Z83.3 Family history of diabetes mellitus; Z59.0 Homelessness; Z68.24 Body mass index [BMI] 24.0-24.9, adult
CPT/HCPCS: 36415-UA; 71010-TC; 73700-TC-RT; 80048-TC; 80053-TC; 80061-TC; 80202-TC; 81001-TC; 82270-TC; 82948-90; 83036-90; 83605; 83735-TC; 84443-TC; 85007-TC; 85025-TC; 85027-TC; 85652-TC; 86141-TC; 86850-TC; 86900-TC; 86901-TC; 86922-TC; 87070-90; 87086-90; 94760; A4217; J0696; J2060; J2543; J3370; J3490; J7030; J7040; P9016; Z7610